=== PATIENT | female | born 1960 | race Caucasian/White ===

== ENCOUNTER → 2016-02-13 | Outpatient (CLI) | payer BC ==
[~2016-02-13] MED LIST: ALBUAER19 INH; ASPI81TA28 PO; CRAN1TAB PO; DICY20TA35 PO; FAMO20TA9 PO; GLC/500 PO; LOSA50TA54 PO; MULT-506 PO; SERT-234 PO; SIMV20TA2 PO; VNTHFA/IN INH; ZAFI1TAB10 PO
--- NOTE | 2016-02-13 17:29 | DIAGNOSTIC IMAGING REPORT ---
PELVIS 1 OR 2 VIEW ROUTINE CLINICAL HISTORY: Right hip pain status post trauma. COMPARISON STUDY: August 2008 FINDINGS: No fractures or dislocations are visualized. There is no SI joint diastases. There is no symphysis diastases. IMPRESSION: No fractures identified. Electronically signed by: Oniel Biggs M.D. 02/13/2016 5:27 PM Dictated Date/Time: 02/13/2016 5:27 PM
--- NOTE | 2016-02-13 17:32 | DIAGNOSTIC IMAGING REPORT ---
RIGHT HIP UNILATERAL 2 VIEWS CLINICAL HISTORY: Right hip pain status post trauma COMPARISON: 2008 DISCUSSION: No fractures or dislocations are visualized. No destructive lesions are identified. IMPRESSION: Unremarkable conventional radiographic evaluation of the right hip. Electronically signed by: Oniel Biggs M.D. 02/13/2016 5:30 PM Dictated Date/Time: 02/13/2016 5:29 PM
--- NOTE | 2016-02-13 17:34 | DIAGNOSTIC IMAGING REPORT ---
L-SPINE MIN 4 VIEWS ROUTINE CLINICAL HISTORY: Back pain and right hip pain status post trauma COMPARISON STUDY: No previous studies for comparison. FINDINGS: There are 5 lumbar type vertebral bodies present. No fractures or subluxations are visualized. There are minor degenerative changes present. IMPRESSION: No fractures or subluxations identified. Electronically signed by: Oniel Biggs M.D. 02/13/2016 5:32 PM Dictated Date/Time: 02/13/2016 5:32 PM
== END | disposition home or self-care (01) ==
LOC: C.RAD1850 16:53
PROVIDERS: ATTEND Nurse Practitioner Family
DX: M54.5 Low back pain (principal); W00.1XXA Fall from stairs and steps due to ice and snow, initial encounter; M79.1 Myalgia; M25.551 Pain in right hip

== ENCOUNTER 2016-11-09 07:08 | Emergency (ER) | payer BC ==
[~2016-11-09 07:08] MED LIST changes: -CRAN1TAB PO; -FAMO20TA9 PO; -VNTHFA/IN INH
[2016-11-09 07:14] VITALS: TEMP 36.8; Ht 162.6 cm
[2016-11-09] MEDS ORDERED: FAMOTIDINE 20MG/102 ML D5W IV STA (07:26)
[2016-11-09] MEDS ORDERED: SODIUM CHLORIDE 0.9% 1000ML 1,000 ML IV STA ×2 (07:26)
[2016-11-09] MEDS ORDERED: ONDANSETRON INJ 2 MG/ML 2 ML VIAL IV STA (07:26)
--- NOTE | 2016-11-09 07:38 | EMERGENCY ROOM VISIT NOTE ---
History Report prepared by Jo Ann: Nalini Mercer Under the Supervision of: Dr. Richard Day M.D. First contact with patient: 07:19 Chief Complaint: ABDOMINAL PAIN Stated Complaint: DIARRHEA,SEVERE STOMACH PAIN History of Present Illness The patient is a 55 year old female who presents to the Emergency Room with complaints of intermittent diarrhea that began one week ago, but worsened today. She currently rates her discomfort as a 7/10 in severity. The patient states that one week ago she developed diarrhea that was first brown in color but became darker in color. She states that she has a history of IBS, but her symptoms felt more severe than her normal symptoms for IBS. The patient states that around 0200 this morning she developed pain in her right lower quadrant abdomen. She states that she thought her symptoms were more severe due to her recent increased stress. The patient additionally reports nausea, but denies any vomiting. She states that she has had a recent productive cough and states that yesterday she had hot and cold flashes. The patient states that Wednesday she felt dizzy and lightheaded, noting that she fell up against her bed. She states that she has been experiencing chest pain, but attributes that to her stress as well. The patient reports a history of a hysterectomy. She denies any urinary symptoms. Source of History: patient Onset: one week ago Position: other (global) Symptom Intensity: 7/10 Timing: intermittent, worsening Associated Symptoms: + cough, + chest pain, + nausea, + abdominal pain, No vomiting, No urinary symptoms Note: Associated Symptoms: increased stress, hot and cold flashes, dizzy, lightheaded , recent fall Review of Systems See HPI for pertinent positives and negatives. A total of ten systems were reviewed and were otherwise negative. Past Medical & Surgical Medical Problems: (1) Asthma (2) Diabetes (3) ecoli UTI (4) Hyperlipidemia (5) Hypertension (6) IBS (irritable bowel syndrome) Surgical Problems: (1) History of hysterectomy Family History Diabetes mellitus Hypertension Social History Smoking Status: Never Smoker Smokeless Tobacco Use: No Alcohol Use: occasionally Drug Use: none Marital Status: Housing Status: lives alone Occupation Status: employed Current/Historical Medications Scheduled Aspirin (Aspirin Ec), 81 MG PO DAILY Cranberry (Vaccinium Macrocarp (Cranberry), 125 MG PO DAILY Dicyclomine Hcl (Bentyl), 20 MG PO BID Famotidine (Pepcid), 20 MG PO BID Losartan Potassium (Cozaar), 50 MG PO DAILY Metformin Hcl (Glucophage), 500 MG PO BID Multivitamin (Multivitamin), 1 TAB PO DAILY Sertraline (Zoloft), 100 MG PO DAILY Simvastatin (Zocor), 20 MG PO QPM Scheduled PRN Albuterol Hfa (Ventolin Hfa), 2-4 PUFFS INH Q6H PRN for Wheezing Allergies Coded Allergies: Morphine (Unverified Allergy, Unknown, ., 11/09/16) Uncoded Allergies: ANESTHESIA (Adverse Reaction, Severe, GI SYMPTOMS, 08/23/15) Physical Exam Vital Signs Date Time Temp Pulse Resp B/P (MAP) Pulse Ox O2 Delivery O2 Flow Rate FiO2 11/09/16 11:01 90 18 128/76 96 11/09/16 09:43 96 18 145/82 96 Room Air 11/09/16 08:23 100 20 166/87 96 Room Air 11/09/16 07:14 36.8 112 20 156/80 95 Room Air Physical Exam GENERAL: Awake, alert, Uncomfortable appearing, no acute distress HENT: Normocephalic, atraumatic. Dry mucous membranes. EYES: Normal conjunctiva. Sclera non-icteric. NECK: Supple. No nuchal rigidity. FROM. No JVD. RESPIRATORY: Clear to auscultation. CARDIAC: Regular rate, normal rhythm. Extremities warm and well perfused. Pulses equal. ABDOMEN: Soft, non-distended. Mild epigastric discomfort, no peritoneal signs. No rebound or guarding. No masses. RECTAL: Deferred. MUSCULOSKELETAL: Chest examination reveals no tenderness. The back is symmetrical on inspection without obvious abnormality. There is no CVA tenderness to palpation. No joint edema. LOWER EXTREMITIES: Calves are equal size bilaterally and non-tender. No edema. No discoloration. NEURO: Normal sensorium. No sensory or motor deficits noted. SKIN: No rash or jaundice noted. Medical Decision & Procedures ER Provider Diagnostic Interpretation: Radiology results as stated below per my review and radiologist interpretation: CHEST ONE VIEW PORTABLE CLINICAL HISTORY: 55 years-old Female presenting with sob. TECHNIQUE: Portable upright AP view of the chest was obtained. COMPARISON: 11/13/2008. FINDINGS: Mild prominence of the cardiac silhouette, unchanged. Mildly low lung volumes, also unchanged. Minimal bandlike opacity at the left lung base, unchanged. Lungs and pleural spaces otherwise clear. Slight dextrocurvature of the thoracic spine. Upper abdomen normal. IMPRESSION: 1. Mild cardiomegaly, unchanged. No convincing evidence of acute cardiopulmonary disease. Electronically signed by: Ellis Guajardo M.D. 11/09/2016 7:54 AM Dictated Date/Time: 11/09/2016 7:53 AM Laboratory Results 11/09/16 07:30 Red Blood Count 4.47, Mean Corpuscular Volume 90.6, Mean Corpuscular Hemoglobin 30.9, Mean Corpuscular Hemoglobin Concent 34.1, Mean Platelet Volume 10.2, Neutrophils (%) (Auto) 73.0, Lymphocytes (%) (Auto) 16.1, Monocytes (%) (Auto) 8.3, Eosinophils (%) (Auto) 2.1, Basophils (%) (Auto) 0.2, Neutrophils # (Auto) 9.90, Lymphocytes # (Auto) 2.19, Monocytes # (Auto) 1.12, Eosinophils # (Auto) 0.29, Basophils # (Auto) 0.03 11/09/16 07:30 Test 11/09/16 07:30 11/09/16 08:20 White Blood Count 13.57 K/uL (4.8-10.8) Red Blood Count 4.47 M/uL (4.2-5.4) Hemoglobin 13.8 g/dL (12.0-16.0) Hematocrit 40.5 % (37-47) Mean Corpuscular Volume 90.6 fL (80-100) Mean Corpuscular Hemoglobin 30.9 pg (25-34) Mean Corpuscular Hemoglobin Concent 34.1 g/dl (32-36) Platelet Count 215 K/uL (130-400) Mean Platelet Volume 10.2 fL (7.4-10.4) Neutrophils (%) (Auto) 73.0 % Lymphocytes (%) (Auto) 16.1 % Monocytes (%) (Auto) 8.3 % Eosinophils (%) (Auto) 2.1 % Basophils (%) (Auto) 0.2 % Neutrophils # (Auto) 9.90 K/uL (1.4-6.5) Lymphocytes # (Auto) 2.19 K/uL (1.2-3.4) Monocytes # (Auto) 1.12 K/uL (0.11-0.59) Eosinophils # (Auto) 0.29 K/uL (0-0.5) Basophils # (Auto) 0.03 K/uL (0-0.2) RDW Standard Deviation 41.8 fL (36.4-46.3) RDW Coefficient of Variation 12.7 % (11.5-14.5) Immature Granulocyte % (Auto) 0.3 % Immature Granulocyte # (Auto) 0.04 K/uL (0.00-0.02) Anion Gap 11.0 mmol/L (3-11) Estimated GFR () 85.7 Estimated GFR (Non- 74.0 BUN/Creatinine Ratio 11.8 (10-20) Calcium Level 9.6 mg/dl (8.5-10.1) Total Bilirubin 0.8 mg/dl (0.2-1) Direct Bilirubin 0.2 mg/dl (0-0.2) Aspartate Amino Transf (AST/SGOT) 18 U/L (15-37) Alanine Aminotransferase (ALT/SGPT) 27 U/L (12-78) Alkaline Phosphatase 84 U/L (45-117) Troponin I < 0.015 ng/ml (0-0.045) Total Protein 7.7 gm/dl (6.4-8.2) Albumin 3.3 gm/dl (3.4-5.0) Lipase 106 U/L (73-393) Beta-Hydroxybutyric Acid 1.19 mg/dL (0.2-2.81) Urine Color DK YELLOW Urine Appearance CLEAR (CLEAR) Urine pH 5.0 (4.5-7.5) Urine Specific [place] 1.022 (1.000-1.030) Urine Protein NEG (NEG) Urine Glucose (UA) 3+ (NEG) Urine Ketones NEG (NEG) Urine Occult Blood NEG (NEG) Urine Nitrite NEG (NEG) Urine Bilirubin NEG (NEG) Urine Urobilinogen NEG (NEG) Urine Leukocyte Esterase NEG (NEG) Laboratory results reviewed by me Medications Administered Medications (Trade) Dose Ordered Sig/Christian Route Start Time Stop Time Status Last Admin Dose Admin Sodium Chloride 1,000 ml @ 999 mls/hr Q1H1M STAT IV 11/09/16 07:26 10/2/17 08:26 DC 11/09/16 07:26 999 MLS/HR Ondansetron HCl (Zofran Inj) 4 mg NOW STAT IV 11/09/16 07:26 11/09/16 07:29 DC 11/09/16 07:26 4 MG Famotidine (Pepcid 20mg/100 ml) 20 mg ONE STAT IV 11/09/16 07:26 11/09/16 07:29 DC 11/09/16 07:26 20 MG Sodium Chloride 1,000 ml @ 999 mls/hr Q1H1M STAT IV 11/09/16 07:26 11/09/16 08:26 DC 11/09/16 07:26 999 MLS/HR ECG Indication: chest pain Rate (beats per minute): 102 Rhythm: sinus tachycardia Findings: no acute ischemic change, other (normal axis, LVH) ED Course 0721: The patient was evaluated in room A10. A complete history and physical exam was performed. 0726: Ordered Sodium Chloride 1000 ml @ 999 mls/hr IV, Famotidine 20 mg IV, Zofran Inj 4 mg IV, Sodium Chloride 1000 ml @ 999 mls/hr IV. 0824: I reevaluated the patient and she is feeling better. 1038: I reevaluated the patient and she is feeling much better. I discussed the exam findings with her and I discussed the treatment plan. She verbalized complete understanding and agreement. She is ready to go home. Medical Decision The patient's presentation and history were concerning for IBS, gastritis, gastroenteritis, obstruction, diverticulitis, biliary etiology, ACS, pneumonia, bronchitis. I reviewed the patient's past medical history, medications, and the nursing notes as described above. Medication Reconciliation: I attest that I have personally reviewed the patient' s current medication list Patient was found to have a slightly elevated blood pressure due to circumstances. I do not believe that the patient requires hypertension monitoring. The patient is a 55-year-old woman with a past medical history of IBS who presents emergency Department with worsening diarrhea and abdominal pain history of present illness. Arrival the patient is in no acute distress, afebrile, tachycardia to 110s but otherwise stable vital signs. Mild epigastric discomfort but no exquisite tenderness or peritoneal signs. WBC 13, nonspecific. Glucose 300s and BHB 1, consistent with with the patient' s medically dry appearance. Patient reassessed after IVF, zofran, pepcid and feeling improved. Sx most likely gastroenteritis in the setting of the patient' s chronic IBS. Findings and plan for follow-up reviewed with patient. Patient agreeable and d/c'd per discharge instructions. Impression Primary Impression: Gastroenteritis Scribe Attestation The scribe's documentation has been prepared under my direction and personally reviewed by me in its entirety. I confirm that the note above accurately reflects all work, treatment, procedures, and medical decision making performed by me. Departure Information Dispostion Home / Self-Care Prescriptions Famotidine (PEPCID) 20 Mg Tab 20 MG PO BID for 14 Days, #28 TAB Prov: Richard Day M.D. 11/09/16 Referrals Luz Evans (PCP) Forms Call Back Authorization, HOME CARE DOCUMENTATION FORM, IMPORTANT VISIT INFORMATION Patient Instructions ED Food Poison Or Gastroenteritis, My [facility] Additional Instructions Please follow up with your primary care physician in the next 1-3 days for re- evaluation. You likely have a viral gastroenteritis. Otherwise, your exam and lab results did not show signs of an emergent condition at this time. Pepcid as directed. Drink plenty of fluids to ensure hydration. Return to the emergency department for worsening symptoms as described in the accompanying instructions.
[2016-11-09 07:45] LABS: BASO % 0.2 %; BASO ABS # 0.03 K/uL (0-0.2); COMPLETE YES; EOS % 2.1 %; HEMATOCRIT 40.5 % (37-47); IG% 0.3 %; LYMPH % 16.1 %; LYMPH ABS # 2.19 K/uL (1.2-3.4); MEAN CELL VOLUME 90.6 fL (80-100); MEAN CORPUSCULAR HEMOGLOBIN 30.9 pg (25-34); MEAN CORPUSCULAR HGB CONC 34.1 g/dl (32-36); MEAN PLATELET VOLUME 10.2 fL (7.4-10.4); MONO % 8.3 %; PLATELET COUNT 215 K/uL (130-400); RED BLOOD COUNT 4.47 M/uL (4.2-5.4); WHITE BLOOD COUNT 13.57 K/uL (4.8-10.8)
--- NOTE | 2016-11-09 07:56 | DIAGNOSTIC IMAGING REPORT ---
CHEST ONE VIEW PORTABLE CLINICAL HISTORY: 55 years-old Female presenting with sob. TECHNIQUE: Portable upright AP view of the chest was obtained. COMPARISON: 11/13/2008. FINDINGS: Mild prominence of the cardiac silhouette, unchanged. Mildly low lung volumes, also unchanged. Minimal bandlike opacity at the left lung base, unchanged. Lungs and pleural spaces otherwise clear. Slight dextrocurvature of the thoracic spine. Upper abdomen normal. IMPRESSION: 1. Mild cardiomegaly, unchanged. No convincing evidence of acute cardiopulmonary disease. Electronically signed by: Ellis Guajardo M.D. 11/09/2016 7:54 AM Dictated Date/Time: 11/09/2016 7:53 AM
[2016-11-09 08:02] LABS: ALT/SGPT 27 U/L (12-78); BLOOD UREA NITROGEN 10 mg/dl (7-18); BUN/CREATININE RATIO 11.8 (10-20); CALCIUM 9.6 mg/dl (8.5-10.1); CARBON DIOXIDE 23 mmol/L (21-32); CHLORIDE 105 mmol/L (98-107); CREATININE 0.88 mg/dl (0.60-1.20); GLUCOSE 313 mg/dl (70-99); POTASSIUM 3.7 mmol/L (3.5-5.1); SODIUM 139 mmol/L (136-145)
[2016-11-09] MEDS ORDERED: CRAN1TAB PO (08:05)
[2016-11-09] MEDS ORDERED: VNTHFA/IN INH (08:05)
[2016-11-09 08:07] LABS: ALKALINE PHOSPHATASE 84 U/L (45-117); AST/SGOT 18 U/L (15-37)
[2016-11-09 08:14] LABS: BETA-HYDROXYBUTYRATE 1.19 mg/dL (0.2-2.81)
[2016-11-09 08:45] LABS: URINE APPEARANCE CLEAR (CLEAR); URINE BILIRUBIN NEG (NEG); URINE COLOR DK YELLOW; URINE NITRITE NEG (NEG); URINE SPECIFIC GRAVITY 1.022 (1.000-1.030); UROBILINOGEN NEG (NEG)
[2016-11-09 08:47] LABS: MANUAL MICROSCOPIC REQUIRED? NO; REVIEW REQ? NO; ZZUR CULT IF INDIC CLEAN CATCH NO
[2016-11-09] MEDS ORDERED: FAMO20TA9 PO (10:52)
[2016-11-09 11:01] VITALS: BP 128/76; PULSE 90; O2SAT 96
== END 2016-11-09 11:02 | disposition home or self-care (01) ==
LOC: C.EDB 07:09 → C.EDA 11:02
DX: K52.9 Noninfective gastroenteritis and colitis, unspecified (principal); K58.9 Irritable bowel syndrome, unspecified; Z90.710 Acquired absence of both cervix and uterus; J45.909 Unspecified asthma, uncomplicated; E11.9 Type 2 diabetes mellitus without complications; E78.5 Hyperlipidemia, unspecified; I10 Essential (primary) hypertension; Z83.3 Family history of diabetes mellitus; Z82.49 Family history of ischemic heart disease and other diseases of the circulatory system; Z79.82 Long term (current) use of aspirin; Z79.899 Other long term (current) drug therapy

== ENCOUNTER 2016-11-14 09:06 | Inpatient (IN) | payer BC ==
[~2016-11-14] VITALS: Ht 162.6 cm; Wt 127.1 kg
[~2016-11-14 09:06] MED LIST changes: -ALBUAER19 INH; +CRAN1TAB PO; +FAMO20TA9 PO; +VNTHFA/IN INH; -ZAFI1TAB10 PO
[2016-11-14] MEDS ORDERED: ONDANSETRON INJ 2 MG/ML 2 ML VIAL IV STA (09:35)
[2016-11-14] MEDS ORDERED: SODIUM CHLORIDE 0.9% 1000ML 1,000 ML IV STA ×2 (09:35→11:22)
[2016-11-14] MEDS ORDERED: KETOROLAC TROMETHAMINE 30 MG/ML VIAL IV STA (09:35)
[2016-11-14] MEDS ORDERED: SODIUM CHLORIDE 0.9% 1000ML 1,000 ML IV ONE (09:35)
[2016-11-14 09:50] LABS: BASO % 0.3 %; BASO ABS # 0.04 K/uL (0-0.2); COMPLETE YES; EOS % 2.2 %; HEMATOCRIT 40.1 % (37-47); IG% 0.8 %; MEAN CELL VOLUME 88.7 fL (80-100); MEAN CORPUSCULAR HEMOGLOBIN 30.5 pg (25-34); MEAN CORPUSCULAR HGB CONC 34.4 g/dl (32-36); MEAN PLATELET VOLUME 10.1 fL (7.4-10.4); MONO % 8.5 %; NEUT % 67.2 %; PLATELET COUNT 280 K/uL (130-400); RED BLOOD COUNT 4.52 M/uL (4.2-5.4)
--- NOTE | 2016-11-14 09:52 | EMERGENCY ROOM VISIT NOTE ---
History Report prepared by Jo Ann: Jigar Hendrix Under the Supervision of: Dr. Angelito Mcbride M.D. First contact with patient: 09:23 Chief Complaint: VOMITING Stated Complaint: ILLNESS Nursing Triage Summary: pt arrives via EMS reports seen here 11/09 for NVD DC with gastroenteritis FU with PCP Wed and Fri. cont to have NVD and feels no better History of Present Illness The patient is a 55 year old female who presents to the Emergency Room via EMS with complaints of diarrhea that began 1 week ago. A couple of days ago, she began to have nausea and vomiting as well. Today, she called her insurance nurse who recommended that the patient go to the ER for possible dehydration. The patient states that she is also lightheaded and has intermittent chest pressure with heart palpitations. She is on a medication for hypertension maintenance secondary to her diabetes. She notes that she has a headache and a cough with sputum. She is having abdominal soreness. She saw her PCP twice this week who thought it might be Giardia. They checked her stool yesterday, so she does not have her results yet. Her symptoms worsen with any eating. She is able to take her medications, but has diarrhea almost immediately after. She felt mildly better after receiving fluids yesterday. She denies any recent antibiotics or travel. She denies any neck pain, hematochezia, or melena. She denies any well water exposure or recent camping trips. Source of History: patient Onset: 1 week ago Position: other (GI) Symptom Intensity: Multiple episodes Quality: other (Diarrhea) Timing: worsening Modifying Factors (Worsening): eating Modifying Factors (Relieving): other (IV fluids) Associated Symptoms: + headache, + cough, + nausea, + vomiting, + abdominal pain (sore), No melena, No hematochezia Note: She is lightheaded. Review of Systems See HPI for pertinent positives & negatives. A total of 10 systems reviewed and were otherwise negative. Past Medical & Surgical Medical Problems: (1) Asthma (2) Diabetes (3) Diarrhea, dehydration, chest pressure (4) ecoli UTI (5) Hyperlipidemia (6) Hypertension (7) IBS (irritable bowel syndrome) Surgical Problems: (1) History of hysterectomy Old medical records were reviewed. Nurse's notes were reviewed and I agree with. Family History Diabetes mellitus Hypertension Social History Smoking Status: Never Smoker Smokeless Tobacco Use: No Alcohol Use: occasionally Drug Use: none Marital Status: Housing Status: lives alone Occupation Status: employed Current/Historical Medications Scheduled Aspirin (Aspirin Ec), 81 MG PO DAILY Cranberry (Vaccinium Macrocarp (Cranberry), 125 MG PO DAILY Dicyclomine Hcl (Bentyl), 20 MG PO BID Famotidine (Pepcid), 20 MG PO BID Losartan Potassium (Cozaar), 50 MG PO DAILY Metformin Hcl (Glucophage), 500 MG PO BID Multivitamin (Multivitamin), 1 TAB PO DAILY Sertraline (Zoloft), 100 MG PO DAILY Simvastatin (Zocor), 20 MG PO QPM Scheduled PRN Albuterol Hfa (Ventolin Hfa), 2-4 PUFFS INH Q6H PRN for Wheezing Allergies Coded Allergies: Morphine (Unverified Allergy, Unknown, ., 11/14/16) Uncoded Allergies: ANESTHESIA (Adverse Reaction, Severe, GI SYMPTOMS, 08/23/15) Physical Exam Vital Signs Date Time Temp Pulse Resp B/P (MAP) Pulse Ox O2 Delivery O2 Flow Rate FiO2 11/14/16 10:44 78 20 160/84 96 Room Air 11/14/16 09:17 91 11/14/16 09:13 36.6 100 20 182/103 96 Room Air Physical Exam General: Mildly-ill appearing, non-toxic, middle aged female in no acute distress. HEENT: Normal cephalic atraumatic. Pupils are equal round and reactive to light. Extraocular movements are intact. Oropharynx is pink with moist mucous membranes. No swelling of the mouth lips or tongue. Neck: Supple with a midline trachea. No meningeal signs or stiffness, no JVD or bruits. No Stridor. Chest: Clear to auscultation bilaterally. No wheezes or rhonchi. No increased work of breathing. Heart: regular rate and rhythm. Abdomen: Soft, but minimally diffusely tender, no peritoneal signs or masses, nondistended without rebound guarding or rigidity. Extremities: No cyanosis clubbing or edema. No calf tenderness or assymetry Spine/Back. Non tender to palpation. No CVA tenderness Skin: Good turgor without rashes. Neurologic exam: Cranial nerves two through 12 are intact. Motor and sensation are intact and symmetrical throughout. Medical Decision & Procedures ER Provider Diagnostic Interpretation: Radiology results as stated below per my review and radiologist interpretation: CHEST ONE VIEW PORTABLE HISTORY: 55 years-old Female CHEST PAIN acute atypical chest pain. COMPARISON: Chest radiograph 11/09/2016 TECHNIQUE: Portable upright AP view of the chest FINDINGS: Cardiac silhouette is mildly enlarged. Mild left basilar atelectasis is unchanged. There is pulmonary vascular congestion without pneumothorax, pleural effusion or focal airspace consolidation. Patient obesity noted. The bones are grossly intact. IMPRESSION: No acute cardiopulmonary process. The above report was generated using voice recognition software. It may contain grammatical, syntax or spelling errors. Electronically signed by: Ángel Mir M.D. 11/14/2016 10:00 AM Dictated Date/Time: 11/14/2016 9:59 AM ABD/PELVIS IV CONTRAST ONLY HISTORY: 55 years-old Female eval for colitis acute generalized abdominal pain with clinical concern for possible colitis. COMPARISON: CT abdomen and pelvis 01/10/2015 TECHNIQUE: Multiple axial CT images of the abdomen and pelvis were obtained following the intravenous administration of 94 mL Optiray 320. A dose lowering technique was used consistent with the principals of RUDDY. FINDINGS: Groundglass opacities of the lung bases suggest atelectasis. There is no pneumoperitoneum identified. The imaged inferior cardiac chambers are mildly enlarged. There is fatty infiltration of the liver. The gallbladder, spleen, pancreas and adrenal glands are within normal limits. Kidneys, ureters and urinary bladder are unremarkable. No renal calculi or hydronephrosis. Prior hysterectomy. The abdominal aorta is normal in both course and caliber with mild mixed plaquing. No bulky retroperitoneal adenopathy. There is no focal small bowel abnormality or small bowel obstruction identified. Wall thickening with mucosal hyperemia and mild surrounding inflammatory stranding extends from the cecum to the rectum compatible with tena colitis. No evidence of acute appendicitis. Fat filled infraumbilical midline anterior abdominal wall hernia is noted anterior to the urinary bladder, diastases 3.6 cm. Note is made of diastases recti. Bones appear intact. Severe facet arthropathy at L5-S1. IMPRESSION: 1. Findings compatible with acute uncomplicated pancolitis, likely infectious or inflammatory in nature. 2. Fatty infiltration of the liver. 3. Prior hysterectomy. The above report was generated using voice recognition software. It may contain grammatical, syntax or spelling errors. Electronically signed by: Ángel Mir M.D. 11/14/2016 12:10 PM Dictated Date/Time: 11/14/2016 12:04 PM Laboratory Results 11/14/16 09:15 Red Blood Count 4.52, Mean Corpuscular Volume 88.7, Mean Corpuscular Hemoglobin 30.5, Mean Corpuscular Hemoglobin Concent 34.4, Mean Platelet Volume 10.1, Neutrophils (%) (Auto) 67.2, Lymphocytes (%) (Auto) 21.0, Monocytes (%) (Auto) 8.5, Eosinophils (%) (Auto) 2.2, Basophils (%) (Auto) 0.3, Neutrophils # (Auto) 8.00, Lymphocytes # (Auto) 2.50, Monocytes # (Auto) 1.01, Eosinophils # (Auto) 0.26, Basophils # (Auto) 0.04 11/14/16 09:15 Test 11/14/16 09:15 11/14/16 09:35 11/14/16 09:46 11/14/16 11:34 White Blood Count 11.90 K/uL (4.8-10.8) Red Blood Count 4.52 M/uL (4.2-5.4) Hemoglobin 13.8 g/dL (12.0-16.0) Hematocrit 40.1 % (37-47) Mean Corpuscular Volume 88.7 fL (80-100) Mean Corpuscular Hemoglobin 30.5 pg (25-34) Mean Corpuscular Hemoglobin Concent 34.4 g/dl (32-36) Platelet Count 280 K/uL (130-400) Mean Platelet Volume 10.1 fL (7.4-10.4) Neutrophils (%) (Auto) 67.2 % Lymphocytes (%) (Auto) 21.0 % Monocytes (%) (Auto) 8.5 % Eosinophils (%) (Auto) 2.2 % Basophils (%) (Auto) 0.3 % Neutrophils # (Auto) 8.00 K/uL (1.4-6.5) Lymphocytes # (Auto) 2.50 K/uL (1.2-3.4) Monocytes # (Auto) 1.01 K/uL (0.11-0.59) Eosinophils # (Auto) 0.26 K/uL (0-0.5) Basophils # (Auto) 0.04 K/uL (0-0.2) RDW Standard Deviation 39.3 fL (36.4-46.3) RDW Coefficient of Variation 12.4 % (11.5-14.5) Immature Granulocyte % (Auto) 0.8 % Immature Granulocyte # (Auto) 0.09 K/uL (0.00-0.02) Anion Gap 7.0 mmol/L (3-11) Est Creatinine Clear Calc Drug Dose 116.8 ml/min Estimated GFR () 115.3 Estimated GFR (Non- 99.4 BUN/Creatinine Ratio 13.7 (10-20) Calcium Level 8.9 mg/dl (8.5-10.1) Total Bilirubin 1.0 mg/dl (0.2-1) Direct Bilirubin 0.2 mg/dl (0-0.2) Aspartate Amino Transf (AST/SGOT) 42 U/L (15-37) Alanine Aminotransferase (ALT/SGPT) 50 U/L (12-78) Alkaline Phosphatase 77 U/L (45-117) Total Creatine Kinase 64 U/L (26-192) Creatine Kinase MB < 0.5 ng/ml (0.5-3.6) Total Protein 7.7 gm/dl (6.4-8.2) Albumin 3.4 gm/dl (3.4-5.0) Lipase 108 U/L (73-393) Thyroid Stimulating Hormone (TSH) 1.270 uIu/ml (0.300-4.500) Creatine Kinase MB Ratio (0-3.0) Bedside Troponin I < 0.030 ng/ml (0-0.045) Urine Color YELLOW Urine Appearance CLEAR (CLEAR) Urine pH 6.5 (4.5-7.5) Urine Specific Durand 1.011 (1.000-1.030) Urine Protein NEG (NEG) Urine Glucose (UA) NEG (NEG) Urine Ketones 1+ (NEG) Urine Occult Blood NEG (NEG) Urine Nitrite NEG (NEG) Urine Bilirubin NEG (NEG) Urine Urobilinogen NEG (NEG) Urine Leukocyte Esterase NEG (NEG) Test 11/14/16 12:35 Bedside Lactic Acid Venous 0.72 mmol/L (0.90-1.70) Laboratory studies as stated above per my review. Medications Administered Medications (Trade) Dose Ordered Sig/Christian Route Start Time Stop Time Status Last Admin Dose Admin Sodium Chloride 1,000 ml @ 999 mls/hr Q1H1M STAT IV 11/14/16 09:35 11/14/16 10:35 DC 11/14/16 09:35 999 MLS/HR Sodium Chloride 1,000 ml @ 150 mls/hr Q6H40M ONCE IV 11/14/16 09:35 11/14/16 16:14 11/14/16 09:35 150 MLS/HR Ketorolac Tromethamine (Toradol Inj) 30 mg NOW STAT IV 11/14/16 09:35 11/14/16 09:38 DC 11/14/16 09:46 30 MG Ondansetron HCl (Zofran Inj) 4 mg NOW STAT IV 11/14/16 09:35 11/14/16 09:38 DC 11/14/16 09:45 4 MG Sodium Chloride 1,000 ml @ 999 mls/hr Q1H1M STAT IV 11/14/16 11:22 11/14/16 12:22 DC 11/14/16 11:33 999 MLS/HR ECG Indication: vomiting Rate (beats per minute): 90 Rhythm: normal sinus Findings: other (Non-specific T-wave abnormalities, LVH) Comparison ECG Date: 09 Nov 2016 Change: QT interval has increased. ED Course 922: Past medical records reviewed. The patient was evaluated in room A10, and a complete history and physical examination were performed. 0935: Ordered Zofran Inj 4 mg IV, Toradol Inj 30 mg IV, Sodium Chloride 1000 ml @ 150 mls/hr IV, Sodium Chloride 1000 ml @ 999 mls/hr IV 1122: Ordered Sodium Chloride 1000 ml @ 999 mls/hr IV 1224: Upon reevaluation, the patient is resting. I discussed the results and treatment plan with the patient. She verbalized agreement of the treatment plan. The patient will be evaluated by Dr. Gareth RAE, for further management. Medical Decision Differentials include, but are not limited to; dehydration, C-Diff, colitis, sepsis, and electrolyte or metabolic abnormality. This patient comes in as described above. She was placed in room A 10. She presents by ambulance after having continuing diarrhea, abdominal cramping and additionally had a near syncopal episode today she felt very weak. She also started having nausea and vomiting. No definite chest pain. She's had diarrhea for one to one and half weeks. She was seen here once and by her primary doctor twice including yesterday when she went to the medical treatment unit to receive IV fluids she had stool studies done which are pending they did not check for C. difficile. They have checked for Giardia and stool culture among other stool studies pending. IV access established was hydrated with a couple liters of IV normal saline while she was in the emergency department. She has no significant electrolyte or metabolic abnormalities. Her white count is mildly elevated however it's down from the last one. Abdomen is not significantly tender but she is mildly diffusely. I did do a CAT scan she has a diffuse tena colitis. Urinalysis does not suggest UTI with a backup culture pending. Most likely her colitis is from an infectious type source. I do not think she has ischemic colitis. Her lactic acid is normal. She has nothing to suggest acute coronary syndrome or arrhythmia. Her EKG is nonischemic appearing. I do think she needs to be observed for further treatment and evaluation. I did order C. difficile studies and these are pending. I did discuss the case with the [facility] hospitalist and she will be observed/admitted for these measures Medication Reconcilliation Current Medication List: was personally reviewed by me (Jigar Hendrix) Blood Pressure Screening Patient's blood pressure: Elevated blood pressure Blood pressure disposition: Elevated BP felt to be situational Consults Time Called: 1220 Consulting Physician: Dr. Servin - [facility] [place] Returned Call: 1224 Discussed the patient's case. The patient will be evaluated for further management. Impression Primary Impression: Pancolitis Additional Impression: Dehydration Scribe Attestation The scribe's documentation has been prepared under my direction and personally reviewed by me in its entirety. I confirm that the note above accurately reflects all work, treatment, procedures, and medical decision making performed by me. Departure Information Dispostion Being Evaluated By Hospitalist Referrals Luz Evans (PCP) Patient Instructions My [facility] Problem Qualifiers
[2016-11-14 09:59] LABS: BLOOD UREA NITROGEN 9 mg/dl (7-18); BUN/CREATININE RATIO 13.7 (10-20); CALCIUM 8.9 mg/dl (8.5-10.1); CARBON DIOXIDE 29 mmol/L (21-32); CHLORIDE 106 mmol/L (98-107); CREATININE 0.66 mg/dl (0.60-1.20); GLUCOSE 200 mg/dl (70-99); POTASSIUM 3.4 mmol/L (3.5-5.1); SODIUM 142 mmol/L (136-145)
--- NOTE | 2016-11-14 10:02 | DIAGNOSTIC IMAGING REPORT ---
CHEST ONE VIEW PORTABLE HISTORY: 55 years-old Female CHEST PAIN acute atypical chest pain. COMPARISON: Chest radiograph 11/09/2016 TECHNIQUE: Portable upright AP view of the chest FINDINGS: Cardiac silhouette is mildly enlarged. Mild left basilar atelectasis is unchanged. There is pulmonary vascular congestion without pneumothorax, pleural effusion or focal airspace consolidation. Patient obesity noted. The bones are grossly intact. IMPRESSION: No acute cardiopulmonary process. The above report was generated using voice recognition software. It may contain grammatical, syntax or spelling errors. Electronically signed by: Ángel Mir M.D. 11/14/2016 10:00 AM Dictated Date/Time: 11/14/2016 9:59 AM
[2016-11-14 10:11] LABS: ALKALINE PHOSPHATASE 77 U/L (45-117); ALT/SGPT 50 U/L (12-78); AST/SGOT 42 U/L (15-37)
[2016-11-14] MEDS ORDERED: OPTIRAY 320 IV PRN (11:30)
[2016-11-14 12:09] LABS: URINE APPEARANCE CLEAR (CLEAR); URINE BILIRUBIN NEG (NEG); URINE COLOR YELLOW; URINE NITRITE NEG (NEG); URINE PH 6.5 (4.5-7.5); URINE SPECIFIC GRAVITY 1.011 (1.000-1.030); UROBILINOGEN NEG (NEG)
--- NOTE | 2016-11-14 12:11 | DIAGNOSTIC IMAGING REPORT ---
ABD/PELVIS IV CONTRAST ONLY HISTORY: 55 years-old Female eval for colitis acute generalized abdominal pain with clinical concern for possible colitis. COMPARISON: CT abdomen and pelvis 01/10/2015 TECHNIQUE: Multiple axial CT images of the abdomen and pelvis were obtained following the intravenous administration of 94 mL Optiray 320. A dose lowering technique was used consistent with the principals of RUDDY. FINDINGS: Groundglass opacities of the lung bases suggest atelectasis. There is no pneumoperitoneum identified. The imaged inferior cardiac chambers are mildly enlarged. There is fatty infiltration of the liver. The gallbladder, spleen, pancreas and adrenal glands are within normal limits. Kidneys, ureters and urinary bladder are unremarkable. No renal calculi or hydronephrosis. Prior hysterectomy. The abdominal aorta is normal in both course and caliber with mild mixed plaquing. No bulky retroperitoneal adenopathy. There is no focal small bowel abnormality or small bowel obstruction identified. Wall thickening with mucosal hyperemia and mild surrounding inflammatory stranding extends from the cecum to the rectum compatible with tena colitis. No evidence of acute appendicitis. Fat filled infraumbilical midline anterior abdominal wall hernia is noted anterior to the urinary bladder, diastases 3.6 cm. Note is made of diastases recti. Bones appear intact. Severe facet arthropathy at L5-S1. IMPRESSION: 1. Findings compatible with acute uncomplicated pancolitis, likely infectious or inflammatory in nature. 2. Fatty infiltration of the liver. 3. Prior hysterectomy. The above report was generated using voice recognition software. It may contain grammatical, syntax or spelling errors. Electronically signed by: Ángel Mir M.D. 11/14/2016 12:10 PM Dictated Date/Time: 11/14/2016 12:04 PM
[2016-11-14 12:14] LABS: MANUAL MICROSCOPIC REQUIRED? NO; REVIEW REQ? NO
--- NOTE | 2016-11-14 12:48 | History and Physical ---
History & Physical Date & Time of Service: Nov 14, 2016 at 12:44 Chief Complaint: Illness Primary Care Physician: Luz Evans History of Present Illness Source: patient This is a 55 y oF with PMhx of asthma, HTN, HLD, diabetes type 2, irritable bowel disease, who presents after 10 days of ongoing diarrhea nausea and vomiting. The patient reports that this morning, at 0600 she called a friend reporting she was in distress with weakness, lightheadedness and dizziness which she thought was from dehydration. This friend is present with her at bedside. Pt attempted to walk back to bed, however cannot recall how she walked from her living room to her bed, and feels that she may have blacked out. She is not sore, denies any trauma, lesions or abrasions that she is aware of from possible fall. She has been to see Dr. Solis, and Dr. Marin who are with Luz Evans in her PCPs office twice within the past week. She was seen on where stool studies were obtained including Giardia. It is unknown if C. difficile was obtained at that time. She reports drinking Gatorade and water the last few days but has been unable to keep it down. She has vomited twice today, but denies any coffee-ground emesis or bright red blood streaking. Her abdominal pain waxes and wanes, and it seems to be worse in the epigastric and left upper quadrant region. She reports severe cramping prior to a bowel movement, and improvement in pain after bowel movement. She reports her stools have been loose, foul-smelling, and mucous-like. She denies any fevers, sweats, chills. She also reports of chest pressure along with palpitations which has been on and off over the past few days as well. She denies anxious personality, and reports that anxiety does not seem to be playing a part. She has an albuterol rescue inhaler but has not used it due to palpitations and fear of making them worse. Patient denies any chest pain. She admits to right frontal headache which has been severe, times last day and has taken ibuprofen for the pain which is only slightly relieved it. Here in the ER the patient stool was tested for C. difficile, currently in process. Blood pressure elevated initially at 182/103 and has reduced down to 160/84. She was also initially tachycardic but now has a regular pulse at 78. She is afebrile, no WBC= 11.9, slight left shift. Potassium equals 3.4. CT of the abdomen and pelvis was reviewed and shows gastritis, without other acute findings. Chest x-ray was completed and without any acute abnormalities. Past Medical/Surgical History Medical Problems: (1) Asthma Status: Chronic (2) Diabetes Status: Chronic (3) Hyperlipidemia Status: Chronic (4) Hypertension Status: Chronic (5) IBS (irritable bowel syndrome) Status: Chronic Surgical Problems: (1) History of hysterectomy Status: Resolved Family History Diabetes mellitus Hypertension Social History Smoking Status: Never Smoker Smokeless Tobacco Use: No Drug Use: none Marital Status: single, Housing status: lives alone Occupational Status: employed Immunizations History of Influenza Vaccine: No History of Tetanus Vaccine?: Unknown History of Pneumococcal: YES, 2 YRS AGO. History of Hepatitis B Vaccine: No Multi-Drug Resistant Organisms History of MDRO: No Allergies Coded Allergies: Morphine (Unverified Allergy, Unknown, ., 11/14/16) Uncoded Allergies: ANESTHESIA (Adverse Reaction, Severe, GI SYMPTOMS, 08/23/15) Home Medications Scheduled Aspirin (Aspirin Ec), 81 MG PO DAILY Cranberry (Vaccinium Macrocarp (Cranberry), 125 MG PO DAILY Dicyclomine Hcl (Bentyl), 20 MG PO BID Famotidine (Pepcid), 20 MG PO BID Losartan Potassium (Cozaar), 50 MG PO DAILY Metformin Hcl (Glucophage), 500 MG PO BID Multivitamin (Multivitamin), 1 TAB PO DAILY Sertraline (Zoloft), 100 MG PO DAILY Simvastatin (Zocor), 20 MG PO QPM Scheduled PRN Albuterol Hfa (Ventolin Hfa), 2-4 PUFFS INH Q6H PRN for Wheezing Review of Systems Constitutional: No fever, sweats or chills Eyes: No diplopia, no worsening or blurred vision ENT: normal hearing, no trouble swallowing Respiratory: No cough, sputum, dyspnea at rest or on exertion Cardiovascular: + Chest pressure, palpitations, no pain. Abdomen: + pain, nausea, vomiting, and diarrhea. Musculoskeletal: No joint pain, calf pain, swelling Neurologic: Uses a walker for ambulation, right hip flexor weakness. Psychiatric: No anxiety or depression Skin: No rash or itch Physical Exam Vital Signs Date Time Temp Pulse Resp B/P (MAP) Pulse Ox O2 Delivery O2 Flow Rate FiO2 11/14/16 10:44 78 20 160/84 96 Room Air 11/14/16 09:17 91 11/14/16 09:13 36.6 100 20 182/103 96 Room Air General: awake, alert, no apparent distress, morbidly obese Head: Normocephalic, atraumatic ENT: PERRL, EOMI, no pharyngeal exudate, mucous membranes moist Chest: Clear to auscultation, on room air, no adventitious breath sounds Cardiac: Regular rate and rhythm, no murmur, no JVD, normal peripheral pulses, good capillary refill Abdominal: Hypoactive bowel sounds, soft, tender to palpation in epigastric and left upper quadrant with deep palpation, + pain with percussion in epigastric and left upper quadrant, no rebound, guarding or tenderness Extremities: Normal inspection, no peripheral edema or erythema, calfs nontender to palpation. No apparent lesions or abrasions. Psych: Normal mood and affect Neuro: AAO x 3, strength intact bilaterally and related 5/5 in upper extremities , right hip flexor rated 3/5 in strength and left is 5/5, no motor deficits, speech is clear, no peripheral sensory deficits. All other areas of strength tested and are negative. Diagnostics Laboratory Results Results Past 24 Hours Test 11/14/16 09:15 11/14/16 09:35 11/14/16 09:46 11/14/16 11:34 Range/Units White Blood Count 11.90 4.8-10.8 K/uL Red Blood Count 4.52 4.2-5.4 M/uL Hemoglobin 13.8 12.0-16.0 g/dL Hematocrit 40.1 37-47 % Mean Corpuscular Volume 88.7 80-100 fL Mean Corpuscular Hemoglobin 30.5 25-34 pg Mean Corpuscular Hemoglobin Concent 34.4 32-36 g/dl Platelet Count 280 130-400 K/uL Mean Platelet Volume 10.1 7.4-10.4 fL Neutrophils (%) (Auto) 67.2 % Lymphocytes (%) (Auto) 21.0 % Monocytes (%) (Auto) 8.5 % Eosinophils (%) (Auto) 2.2 % Basophils (%) (Auto) 0.3 % Neutrophils # (Auto) 8.00 1.4-6.5 K/uL Lymphocytes # (Auto) 2.50 1.2-3.4 K/uL Monocytes # (Auto) 1.01 0.11-0.59 K/uL Eosinophils # (Auto) 0.26 0-0.5 K/uL Basophils # (Auto) 0.04 0-0.2 K/uL RDW Standard Deviation 39.3 36.4-46.3 fL RDW Coefficient of Variation 12.4 11.5-14.5 % Immature Granulocyte % (Auto) 0.8 % Immature Granulocyte # (Auto) 0.09 0.00-0.02 K/uL Sodium Level 142 136-145 mmol/L Potassium Level 3.4 3.5-5.1 mmol/L Chloride Level 106 98-107 mmol/L Carbon Dioxide Level 29 21-32 mmol/L Anion Gap 7.0 3-11 mmol/L Blood Urea Nitrogen 9 7-18 mg/dl Creatinine 0.66 0.60-1.20 mg/dl Est Creatinine Clear Calc Drug Dose 116.8 ml/min Estimated GFR () 115.3 Estimated GFR (Non- 99.4 BUN/Creatinine Ratio 13.7 10-20 Random Glucose 200 70-99 mg/dl Calcium Level 8.9 8.5-10.1 mg/dl Total Bilirubin 1.0 0.2-1 mg/dl Direct Bilirubin 0.2 0-0.2 mg/dl Aspartate Amino Transf (AST/SGOT) 42 15-37 U/L Alanine Aminotransferase (ALT/SGPT) 50 12-78 U/L Alkaline Phosphatase 77 45-117 U/L Total Creatine Kinase 64 26-192 U/L Creatine Kinase MB < 0.5 0.5-3.6 ng/ml Creatine Kinase MB Ratio 0-3.0 Total Protein 7.7 6.4-8.2 gm/dl Albumin 3.4 3.4-5.0 gm/dl Lipase 108 73-393 U/L Thyroid Stimulating Hormone (TSH) 1.270 0.300-4.500 uIu/ml Bedside Troponin I < 0.030 0-0.045 ng/ml Urine Color YELLOW Urine Appearance CLEAR CLEAR Urine pH 6.5 4.5-7.5 Urine Specific [place] 1.011 1.000-1.030 Urine Protein NEG NEG Urine Glucose (UA) NEG NEG Urine Ketones 1+ NEG Urine Occult Blood NEG NEG Urine Nitrite NEG NEG Urine Bilirubin NEG NEG Urine Urobilinogen NEG NEG Urine Leukocyte Esterase NEG NEG Microbiology Results 11/14/16 Urine Culture, Received Pending Diagnostic Radiology ABD/PELVIS IV CONTRAST ONLY HISTORY: 55 years-old Female eval for colitis acute generalized abdominal pain with clinical concern for possible colitis. COMPARISON: CT abdomen and pelvis 01/10/2015 TECHNIQUE: Multiple axial CT images of the abdomen and pelvis were obtained following the intravenous administration of 94 mL Optiray 320. A dose lowering technique was used consistent with the principals of RUDDY. FINDINGS: Groundglass opacities of the lung bases suggest atelectasis. There is no pneumoperitoneum identified. The imaged inferior cardiac chambers are mildly enlarged. There is fatty infiltration of the liver. The gallbladder, spleen, pancreas and adrenal glands are within normal limits. Kidneys, ureters and urinary bladder are unremarkable. No renal calculi or hydronephrosis. Prior hysterectomy. The abdominal aorta is normal in both course and caliber with mild mixed plaquing. No bulky retroperitoneal adenopathy. There is no focal small bowel abnormality or small bowel obstruction identified. Wall thickening with mucosal hyperemia and mild surrounding inflammatory stranding extends from the cecum to the rectum compatible with tena colitis. No evidence of acute appendicitis. Fat filled infraumbilical midline anterior abdominal wall hernia is noted anterior to the urinary bladder, diastases 3.6 cm. Note is made of diastases recti. Bones appear intact. Severe facet arthropathy at L5-S1. IMPRESSION: 1. Findings compatible with acute uncomplicated pancolitis, likely infectious or inflammatory in nature. 2. Fatty infiltration of the liver. 3. Prior hysterectomy. The above report was generated using voice recognition software. It may contain grammatical, syntax or spelling errors. Electronically signed by: Ángel Mir M.D. 11/14/2016 12:10 PM Dictated Date/Time: 11/14/2016 12:04 PM The status of this report is Signed. CHEST ONE VIEW PORTABLE HISTORY: 55 years-old Female CHEST PAIN acute atypical chest pain. COMPARISON: Chest radiograph 11/09/2016 TECHNIQUE: Portable upright AP view of the chest FINDINGS: Cardiac silhouette is mildly enlarged. Mild left basilar atelectasis is unchanged. There is pulmonary vascular congestion without pneumothorax, pleural effusion or focal airspace consolidation. Patient obesity noted. The bones are grossly intact. IMPRESSION: No acute cardiopulmonary process. The above report was generated using voice recognition software. It may contain grammatical, syntax or spelling errors. Electronically signed by: Ángel Mir M.D. 11/14/2016 10:00 AM Dictated Date/Time: 11/14/2016 9:59 AM The status of this report is Signed. Impression Assessment and Plan This is a 55 y oF with PMhx of asthma, HTN, HLD, diabetes type 2, irritable bowel disease, who presents after 10 days of ongoing diarrhea nausea and vomiting. The patient reports that this morning, at 0600 she called a friend reporting she was in distress with weakness, lightheadedness and dizziness which she thought was from dehydration. Abdominal pain Dehydration Nausea and vomiting History of irritable bowel syndrome - Admit the patient to telemetry - Afebrile, WBC = 11.9. - Continue IVF with NSS + KCl at 125m/hr for now, allowed clear liquid diet and if patient tolerates can advance - Antiemetics with Zofran, pain control with tylenol and toradol if needed. - Follow stool studies, C. difficile sent, guaiac all stools - no antibiotics started on the patient in the ER. - CT of the abdomen and pelvis reviewed as above- 1. Findings compatible with acute uncomplicated pancolitis, likely infectious or inflammatory in nature. 2. Fatty infiltration of the liver. 3. Prior hysterectomy. - Continue on Bentyl and famotidine Diabetes mellitus type 2 - ISS with Accu-Cheks achs - We'll hold metformin for now - Check an A1c with am labs Asthma - Patient uses her rescue albuterol inhaler at home, although has not required this evening with chest tightness. She was fearful that Dictation slight increase with use of albuterol rescue inhaler. - Dual nebs available q4h prn - CXR reviewed and negative Hypertension - Blood pressure has improved since being in the ER, continue losartan 50 mg daily. Patient reports inability to keep her medications down with nausea and vomiting, and questionable absorption with diarrhea - IV hydralazine when necessary - Will trend tropinins Hyperlipidemia - Check lipids, continue simvastatin 20Qpm Morbid obesity -BMI equals 41.6, diet and exercise was encouraged at bedside - Patient reports her diet consists of banana/bladder/nutella sandwich breakfast , sandwich or/salad at lunch, and either another bowl cereal or Ramen noodles in the evening CODE STATUS full code DVT ppx: Teds, SCDs, Lovenox 40 subcutaneous Disposition patient from home, lives by herself, PT and OT to eval: Level of Care Telemetry Advanced Directives Existing Advance Directive: No Existing Living Will: No Existing Power of Rn Clinical Appeals: No Existing Health Care Proxy: No Resuscitation Status FULL RESUSCITATION VTE Prophylaxis VTE Risk Assessment Done? Y/N: Yes Risk Level: Low Given or contraindicated: Enoxaparin (Lovenox)SQ, T.E.D. Stockings, SCD's Reviewed: Pt Seen/Exam by Me History Pt is feeling a bit improved s/p IVF. She has not had diarrhea or other bowel movement since arrival to the ED. No further n/v. Has not been able to tolerate PO at home. Was feeling better after IVF in the [facility] as outpt, however sx continued. Agree with HPI/ROS as noted. General Appearance: no apparent distress, obese Eye Exam: bilateral eye normal inspection, bilateral eye EOMI Respiratory: normal breath sounds, no respiratory distress Cardiovascular: normal peripheral pulses, regular rate, rhythm Gastrointestinal: soft, tenderness (diffuse TTP) Extremities: non-tender, no pedal edema Neurologic/Psychiatric: alert, oriented x 3 Skin Characteristics: normal color, warm/dry Assessment/Plan Agree with plan as outlined above Acute colitis noted on CT AP that has failed multiple attempts at outpt management Cx taken as outpt and pending Cdiff pending collection No recent abx use or hospitalizations Clears as able and can ADAT DM: Holding metformin due to contrast for CT SSI for now Daughter is at bedside. She is . I did advise her to limit contact with pt and practice good hand sanitation given .
[2016-11-14] MEDS ORDERED: HydrALAZINE HCL 20 MG/ML VIAL IV. PRN (13:30)
[2016-11-14] MEDS ORDERED: ALBUT/IPRATROP 3MG/0.5MG NEB 3 ML VIAL INH PRN (13:30)
[2016-11-14 14:55] VITALS: BP 149/88; PULSE 88; TEMP 36.9; O2SAT 92
[2016-11-14] MEDS: NSS + 20MEQ KCL 1000ML 1,000 ML IV SCH ×2 (15:27→23:21)
[2016-11-14 15:50] LABS: PROTHROMBIN TIME (PATIENT) 10.7 SECONDS (9.0-12.0)
[2016-11-14] MEDS: ENOXAPARIN 40 MG/0.4 ML SYR SC SCH (17:38)
[2016-11-14] MEDS ORDERED: GLUCOSE 40% GEL 15 GM TUBE PO PRN (18:30)
[2016-11-14] MEDS ORDERED: GLUCAGON FOR INJ 1 MG VIAL SQ PRN (18:30)
[2016-11-14] MEDS ORDERED: GLUCOSE 10 TABS/TUBE PO PRN (18:30)
[2016-11-14] MEDS ORDERED: DEXTROSE 50% 50 ML SYR IV PRN (18:30)
[2016-11-14 19:20] VITALS: BP 117/76; PULSE 79; TEMP 36.8; O2SAT 92
[2016-11-14] MEDS: FAMOTIDINE 20 MG TAB PO SCH (20:55)
[2016-11-14] MEDS: DICYCLOMINE HCL 20 MG TAB PO SCH (20:56)
[2016-11-14] MEDS: SIMVASTATIN 20 MG TAB PO SCH (20:56)
[2016-11-14] MEDS: INSULIN ASPART 100 UNITS/ML 3 ML PEN SC SCH (20:59)
[2016-11-14] MEDS: KETOROLAC TROMETHAMINE 30 MG/ML VIAL IV PRN (23:29)
[2016-11-14 23:35] VITALS: BP 142/72; PULSE 83; TEMP 36.8; O2SAT 94
[2016-11-15] VITALS (8 sets, daily range): BP systolic 125–160; BP diastolic 72–89; PULSE 52–99; TEMP 36.4–36.8; O2SAT 91–95
[2016-11-15] MEDS: ONDANSETRON INJ 2 MG/ML 2 ML VIAL IV PRN ×2 (04:08→14:12)
[2016-11-15] MEDS: CODEINE SULFATE 30 MG TAB PO PRN (05:16)
[2016-11-15] MEDS: NSS + 20MEQ KCL 1000ML 1,000 ML IV SCH ×2 (06:18→14:09)
--- NOTE | 2016-11-15 07:36 | Hospitalist Progress Note ---
Hospitalist Progress Note Date of Service Nov 15, 2016. (Hazel Guajardo PA-C) Subjective Pt evaluation today including: conversation w/ patient, physical exam, chart review, lab review, review of studies Pain: abd pain improved PO Intake: tolerating clear liquids Voiding: no voiding problems The patient was seen and examined this morning. Pt reports doing ok, she had episodes of palpitations overnight along with severe headache and so had a dose of toradol which helped relieve it. She did not have any chest pain. Pt notes it is essentially gone this morning. She has been tolerating clear liquids, but is nauseous occasionally. Early this morning was having dry heaves. Her last bout of diarrhea was last evening. Discussion regarding hx of colonoscopy reveal she has never had one, and hasn't seen GI in ~15 years. Additional Comments: Constitutional: No fever, sweats or chills Eyes: No diplopia, no worsening or blurred vision ENT: normal hearing, no trouble swallowing Respiratory: No cough, sputum, dyspnea at rest or on exertion Cardiovascular: See HPI Abdomen: + pain epigastric and LUQ, + nausea, + dry heaves no vomiting, + diarrhea yesterday. Musculoskeletal: No joint pain, calf pain, swelling Neurologic: Uses a walker for ambulation, right hip flexor weakness. Psychiatric: No anxiety or depression Skin: No rash or itch (Hazel Guajardo, JULIO) Objective Vital Signs Date Time Temp Pulse Resp B/P (MAP) Pulse Ox O2 Delivery O2 Flow Rate FiO2 11/15/16 05:17 36.8 99 18 144/74 (97) 11/15/16 04:05 Room Air 11/15/16 00:05 Room Air 11/15/16 00:05 36.8 83 18 142/72 (95) 94 Room Air 11/14/16 23:35 36.8 83 18 142/72 (95) 94 11/14/16 19:20 36.8 79 18 117/76 (90) 92 Room Air 11/14/16 16:00 Room Air 11/14/16 14:55 Room Air 11/14/16 14:55 36.9 88 20 149/88 (108) 92 Room Air 11/14/16 10:44 78 20 160/84 96 Room Air 11/14/16 09:17 91 11/14/16 09:13 36.6 100 20 182/103 96 Room Air (Hazel Guajardo PA-C) Physical Exam Notes: General: awake, alert, NAD, morbidly obese Head: Normocephalic, atraumatic ENT: PERRL, EOMI, no pharyngeal exudate, mucous membranes moist Chest: Clear to auscultation, on room air, no adventitious breath sounds Cardiac: Regular rate and rhythm, no murmur, no JVD, normal peripheral pulses, good capillary refill Abdominal: NABS x4q, soft, tender to palpation in epigastric, LUQ and LLQ with deep palpation, + pain with percussion in epigastric and LUQ slightly improved, no rebound, guarding or tenderness Extremities: Normal inspection, no peripheral edema or erythema, calfs nontender to palpation. No apparent lesions or abrasions. Psych: Normal mood and affect Neuro: AAO x 3, strength intact bilaterally and related 5/5 in upper extremities , right hip flexor rated 3/5 in strength and left is 5/5, no motor deficits, speech is clear, no peripheral sensory deficits. All other areas of strength tested and are negative. (Hazel Guajardo PA-C) Laboratory Results Last 24 Hours Test 11/14/16 09:15 11/14/16 09:35 11/14/16 09:46 11/14/16 11:34 White Blood Count 11.90 K/uL Red Blood Count 4.52 M/uL Hemoglobin 13.8 g/dL Hematocrit 40.1 % Mean Corpuscular Volume 88.7 fL Mean Corpuscular Hemoglobin 30.5 pg Mean Corpuscular Hemoglobin Concent 34.4 g/dl Platelet Count 280 K/uL Mean Platelet Volume 10.1 fL Neutrophils (%) (Auto) 67.2 % Lymphocytes (%) (Auto) 21.0 % Monocytes (%) (Auto) 8.5 % Eosinophils (%) (Auto) 2.2 % Basophils (%) (Auto) 0.3 % Neutrophils # (Auto) 8.00 K/uL Lymphocytes # (Auto) 2.50 K/uL Monocytes # (Auto) 1.01 K/uL Eosinophils # (Auto) 0.26 K/uL Basophils # (Auto) 0.04 K/uL RDW Standard Deviation 39.3 fL RDW Coefficient of Variation 12.4 % Immature Granulocyte % (Auto) 0.8 % Immature Granulocyte # (Auto) 0.09 K/uL Sodium Level 142 mmol/L Potassium Level 3.4 mmol/L Chloride Level 106 mmol/L Carbon Dioxide Level 29 mmol/L Anion Gap 7.0 mmol/L Blood Urea Nitrogen 9 mg/dl Creatinine 0.66 mg/dl Est Creatinine Clear Calc Drug Dose 116.8 ml/min Estimated GFR () 115.3 Estimated GFR (Non- 99.4 BUN/Creatinine Ratio 13.7 Random Glucose 200 mg/dl Calcium Level 8.9 mg/dl Total Bilirubin 1.0 mg/dl Direct Bilirubin 0.2 mg/dl Aspartate Amino Transf (AST/SGOT) 42 U/L Alanine Aminotransferase (ALT/SGPT) 50 U/L Alkaline Phosphatase 77 U/L Total Creatine Kinase 64 U/L Creatine Kinase MB < 0.5 ng/ml Creatine Kinase MB Ratio Total Protein 7.7 gm/dl Albumin 3.4 gm/dl Lipase 108 U/L Thyroid Stimulating Hormone (TSH) 1.270 uIu/ml Bedside Troponin I < 0.030 ng/ml Urine Color YELLOW Urine Appearance CLEAR Urine pH 6.5 Urine Specific [place] 1.011 Urine Protein NEG Urine Glucose (UA) NEG Urine Ketones 1+ Urine Occult Blood NEG Urine Nitrite NEG Urine Bilirubin NEG Urine Urobilinogen NEG Urine Leukocyte Esterase NEG Test 11/14/16 12:35 11/14/16 15:32 11/14/16 16:15 11/14/16 16:54 Bedside Lactic Acid Venous 0.72 mmol/L Prothrombin Time 10.7 SECONDS Prothromb Time International Ratio 1.0 Troponin I < 0.015 ng/ml Bedside Glucose 132 mg/dl 131 mg/dl Test 11/14/16 17:30 11/14/16 20:37 11/14/16 23:08 11/15/16 01:55 Stool Occult Blood NEGATIVE Bedside Glucose 143 mg/dl Troponin I < 0.015 ng/ml < 0.015 ng/ml Test 11/15/16 07:05 11/15/16 07:14 (Hazel Guajardo PA-C) Assessment and Plan This is a 55 y oF with PMhx of asthma, HTN, HLD, diabetes type 2, irritable bowel disease, who presents after 10 days of ongoing diarrhea nausea and vomiting. The patient reports that this morning, at 0600 she called a friend reporting she was in distress with weakness, lightheadedness and dizziness which she thought was from dehydration. Abdominal pain Dehydration Nausea and vomiting History of irritable bowel syndrome - Afebrile, WBC = 11.9. - Continue IVF with NSS + KCl at 125m/hr for now, allowed clear liquid diet and if patient tolerates can advance - GI consulted for possible scope tomorrow - no hx of colonoscopy - will make NPO after 2400 in anticipation. Allow bowel prep up to GI. - Antiemetics with Zofran, pain control with tylenol and toradol if needed. - Follow stool studies, C. difficile negative, guaiac all stools - no antibiotics started on the patient in the ER. - CT of the abdomen and pelvis reviewed as above- 1. Findings compatible with acute uncomplicated pancolitis, likely infectious or inflammatory in nature. 2. Fatty infiltration of the liver. 3. Prior hysterectomy. - No diverticulitis. - Continue on Bentyl and famotidine - Checking celiacs panel Diabetes mellitus type 2 - ISS with Accu-Cheks achs - We'll hold metformin for now - Check an A1c with am labs Asthma - Patient uses her rescue albuterol inhaler at home, although has not required this evening with chest tightness. She was fearful that palpitations would increase with use of albuterol rescue inhaler. - Duonebs available q4h prn - CXR reviewed and negative Hypertension - Blood pressure has improved since being in the ER, continue losartan 50 mg daily. Patient reports inability to keep her medications down with nausea and vomiting, and questionable absorption with diarrhea - IV hydralazine when necessary - Troponins x 3 negative, EKG repeated overnight for worsening boyd and chest tightness. Hyperlipidemia - Check lipids, continue simvastatin 20Qpm Morbid obesity - BMI equals 41.6, diet and exercise was encouraged at bedside - May ask [employer] biomanufacturing technician to see the patient to discuss healthy/affordable meal options tomorrow. CODE STATUS full code DVT ppx: Teds, SCDs, Lovenox 40 subcutaneous Disposition: pt from home, possible colonoscopy tomorrow (Hazel Guajardo, JULIO) PA Physician Supervision Note: I interviewed and examined the patient. Discussed with Hazel Guajardo PAC and agree with findings and plan as documented in the note. Any exceptions or clarifications are listed here: None Patient presents with bloody bowel movements, has a history of IBDZ. she has stable h/h and negative infectious work up so far vitals are stable abd with nabs and some LLQ tenderness Possible gib bleeding, will consult gi med, has been with no appreciable foot intake for 2 days, will consider endoscopy if GI recommends Documented By: Nino Melissa (Nino Melissa M.D.)
[2016-11-15] MEDS: SERTRALINE HCL 100 MG TAB PO SCH (07:57)
[2016-11-15] MEDS: FAMOTIDINE 20 MG TAB PO SCH ×2 (07:58→20:56)
[2016-11-15] MEDS: MULTIVITAMIN TAB PO SCH (07:58)
[2016-11-15] MEDS: ASPIRIN 81 MG ECTAB PO SCH (07:58)
[2016-11-15] MEDS: DICYCLOMINE HCL 20 MG TAB PO SCH ×2 (07:58→20:56)
[2016-11-15] MEDS: LOSARTAN POTASSIUM 50 MG TAB PO SCH (07:58)
[2016-11-15 08:00] LABS: BUN/CREATININE RATIO 7.2 (10-20); CALCIUM 8.3 mg/dl (8.5-10.1); CREATININE 0.5 mg/dl (0.60-1.20); POTASSIUM 3.6 mmol/L (3.5-5.1)
[2016-11-15 08:01] LABS: CHOLESTEROL/HDL RATIO 3.1; HEMATOCRIT 34.3 % (37-47); MEAN CELL VOLUME 90.5 fL (80-100); MEAN CORPUSCULAR HEMOGLOBIN 30.9 pg (25-34); MEAN CORPUSCULAR HGB CONC 34.1 g/dl (32-36); PLATELET COUNT 235 K/uL (130-400); RED BLOOD COUNT 3.79 M/uL (4.2-5.4); WHITE BLOOD COUNT 9.59 K/uL (4.8-10.8)
[2016-11-15 09:08] LABS: BASO % 0.4 %; BASO ABS # 0.04 K/uL (0-0.2); COMPLETE YES; EOS % 3.9 %; IG% 0.7 %; LYMPH % 29.8 %; LYMPH ABS # 2.86 K/uL (1.2-3.4); MONO % 9.5 %; NEUT % 55.7 %
[2016-11-15] MEDS: INSULIN ASPART 100 UNITS/ML 3 ML PEN SC SCH ×4 (09:19→20:57)
[2016-11-15] MEDS: ACETAMINOPHEN 325 MG TAB PO PRN (14:16)
[2016-11-15] MEDS: ENOXAPARIN 40 MG/0.4 ML SYR SC SCH (17:40)
[2016-11-15] MEDS: SIMVASTATIN 20 MG TAB PO SCH (21:31)
[2016-11-16] VITALS (8 sets, daily range): BP systolic 125–172; BP diastolic 76–86; PULSE 66–83; TEMP 36.5–37.1; O2SAT 92–97; Ht 162.6 cm; Wt 127.1 kg
[2016-11-16] MEDS: ACETAMINOPHEN 325 MG TAB PO PRN ×3 (01:49→14:20)
[2016-11-16] MEDS: NSS + 20MEQ KCL 1000ML 1,000 ML IV SCH ×2 (01:51→14:21)
[2016-11-16] MEDS: ONDANSETRON INJ 2 MG/ML 2 ML VIAL IV PRN (01:53)
[2016-11-16 07:32] LABS: BASO % 0.4 %; BASO ABS # 0.04 K/uL (0-0.2); COMPLETE YES; EOS % 4.1 %; HEMATOCRIT 32.8 % (37-47); IG% 1.2 %; LYMPH % 28.5 %; LYMPH ABS # 2.66 K/uL (1.2-3.4); MEAN CELL VOLUME 91.1 fL (80-100); MEAN CORPUSCULAR HEMOGLOBIN 31.4 pg (25-34); MEAN CORPUSCULAR HGB CONC 34.5 g/dl (32-36); MEAN PLATELET VOLUME 9.6 fL (7.4-10.4); MONO % 11.3 %; NEUT % 54.5 %; PLATELET COUNT 221 K/uL (130-400); WHITE BLOOD COUNT 9.33 K/uL (4.8-10.8)
[2016-11-16 07:56] LABS: CALCIUM 8.3 mg/dl (8.5-10.1); CREATININE 0.52 mg/dl (0.60-1.20); POTASSIUM 3.7 mmol/L (3.5-5.1)
[2016-11-16] MEDS: MULTIVITAMIN TAB PO SCH (08:09)
[2016-11-16] MEDS: DICYCLOMINE HCL 20 MG TAB PO SCH ×2 (08:09→20:29)
[2016-11-16] MEDS: FAMOTIDINE 20 MG TAB PO SCH ×2 (08:09→20:29)
[2016-11-16] MEDS: LOSARTAN POTASSIUM 50 MG TAB PO SCH (08:10)
[2016-11-16] MEDS: INSULIN ASPART 100 UNITS/ML 3 ML PEN SC SCH ×4 (08:17→20:27)
[2016-11-16] MEDS: SERTRALINE HCL 100 MG TAB PO SCH (08:52)
[2016-11-16] MEDS: ASPIRIN 81 MG ECTAB PO SCH (12:35)
--- NOTE | 2016-11-16 14:05 | Hospitalist Progress Note ---
Hospitalist Progress Note Date of Service Nov 16, 2016. (Radha Zaldivar CRNP) Subjective Pt evaluation today including: conversation w/ patient, physical exam, chart review, lab review, review of inpatient medication list Voiding: no voiding problems Ms. Carbajal continues to be nauseas but has no vomited since coming to the hospital. She does feel that if she at more than broth she would vomit. She has not had any diarrhea today but attributes that to not eating. Constitutional: No fever, No chills Abdomen: + nausea, No vomiting, No diarrhea Female : No dysuria All Other Systems: Reviewed and Negative (Radha Zaldivar CRNP) Medications Medications Administered Medications (Trade) Dose Ordered Sig/Christian Route Start Time Stop Time Status Last Admin Dose Admin Sodium Chloride 1,000 ml @ 999 mls/hr Q1H1M STAT IV 11/14/16 09:35 11/14/16 10:35 DC 11/14/16 09:35 999 MLS/HR Sodium Chloride 1,000 ml @ 150 mls/hr Q6H40M ONCE IV 11/14/16 09:35 11/14/16 15:08 DC 11/14/16 09:35 150 MLS/HR Ketorolac Tromethamine (Toradol Inj) 30 mg NOW STAT IV 11/14/16 09:35 11/14/16 09:38 DC 11/14/16 09:46 30 MG Ondansetron HCl (Zofran Inj) 4 mg NOW STAT IV 11/14/16 09:35 11/14/16 09:38 DC 11/14/16 09:45 4 MG Sodium Chloride 1,000 ml @ 999 mls/hr Q1H1M STAT IV 11/14/16 11:22 11/14/16 12:22 DC 11/14/16 11:33 999 MLS/HR Enoxaparin Sodium (Lovenox Inj) 40 mg Q24H SC 11/14/16 18:00 12/14/16 17:59 11/15/16 17:40 40 MG Potassium Chloride/Sodium Chloride 1,000 ml @ 80 mls/hr [id number] IV 11/14/16 15:00 12/14/16 14:59 11/16/16 01:51 80 MLS/HR Acetaminophen (Tylenol Tab) 650 mg Q4H PRN PO 11/14/16 13:30 12/14/16 13:29 11/16/16 07:06 650 MG Ondansetron HCl (Zofran Inj) 4 mg Q6H PRN IV 11/14/16 13:30 12/14/16 13:29 11/16/16 01:53 4 MG Aspirin (Ecotrin Tab) 81 mg DAILY PO 11/15/16 09:00 12/15/16 08:59 11/16/16 12:35 81 MG Dicyclomine HCl (Bentyl Tab) 20 mg BID PO 11/14/16 21:00 12/14/16 20:59 11/16/16 08:09 20 MG Famotidine (Pepcid Tab) 20 mg BID PO 11/14/16 21:00 12/14/16 20:59 11/16/16 08:09 20 MG Losartan Potassium (coZAAR TAB) 50 mg DAILY PO 11/15/16 09:00 12/15/16 08:59 11/16/16 08:10 50 MG Multivitamins (Multivitamin Tab) 1 tab DAILY PO 11/15/16 09:00 12/15/16 08:59 11/16/16 08:09 1 TAB Sertraline HCl (Zoloft Tab) 100 mg DAILY PO 11/15/16 09:00 12/15/16 08:59 11/16/16 08:52 100 MG Simvastatin (Zocor Tab) 20 mg QPM PO 11/14/16 21:00 12/14/16 20:59 11/15/16 21:31 20 MG Ketorolac Tromethamine (Toradol Inj) 30 mg Q6H PRN IV 11/14/16 14:00 11/19/16 13:59 11/14/16 23:29 30 MG Insulin Aspart (novoLOG ASPART) SLIDING SCALE G... ACHS SC 11/14/16 21:00 12/14/16 20:59 11/16/16 12:27 8 UNITS Codeine Sulfate (Codeine Tab) 30 mg Q6H PRN PO 11/15/16 04:30 11/29/16 04:29 11/15/16 05:16 30 MG (Radha Zaldivar, FAUSTO) Objective Vital Signs Date Time Temp Pulse Resp B/P (MAP) Pulse Ox O2 Delivery O2 Flow Rate FiO2 11/16/16 12:00 Room Air 11/16/16 11:13 36.7 72 18 172/82 (112) 92 Room Air 11/16/16 10:17 72 92 11/16/16 08:00 Room Air 11/16/16 07:25 36.9 83 20 135/76 (95) 93 Room Air 11/16/16 04:00 Room Air 11/16/16 04:00 36.8 70 16 148/80 (102) 92 Room Air 11/16/16 00:17 36.6 79 16 125/79 (94) 92 Room Air 11/16/16 00:00 Room Air 11/15/16 20:19 36.4 73 18 125/74 (91) 95 Room Air 11/15/16 20:00 Room Air 11/15/16 16:00 Room Air 11/15/16 16:00 91 Room Air 11/15/16 15:48 36.8 75 18 127/76 (93) 91 Room Air (Radha Zaldivar CRNP) Physical Exam Notes: General: no distress Eyes: normal inspection, PERLL Respiratory: chest non tender, clear to auscultation, normal breath sounds, no respiratory distress, no accessory muscle use Cardiac: regular rate and rhythm, no rub or gallop, no murmur, no edema, no jvd GI/: hypoactive bowel sounds, abdominal tenderness, soft, non distended Extremities: normal range of motion, normal strength, non tender Neuro/Psych: alert and oriented x 3, normal mood and affect Skin: normal color, dry (Radha Zaldivar CRNP) Laboratory Results Last 24 Hours Test 11/15/16 16:15 11/15/16 20:38 11/16/16 07:10 11/16/16 07:15 Bedside Glucose 100 mg/dl 105 mg/dl 141 mg/dl White Blood Count 9.33 K/uL Red Blood Count 3.60 M/uL Hemoglobin 11.3 g/dL Hematocrit 32.8 % Mean Corpuscular Volume 91.1 fL Mean Corpuscular Hemoglobin 31.4 pg Mean Corpuscular Hemoglobin Concent 34.5 g/dl Platelet Count 221 K/uL Mean Platelet Volume 9.6 fL Neutrophils (%) (Auto) 54.5 % Lymphocytes (%) (Auto) 28.5 % Monocytes (%) (Auto) 11.3 % Eosinophils (%) (Auto) 4.1 % Basophils (%) (Auto) 0.4 % Neutrophils # (Auto) 5.09 K/uL Lymphocytes # (Auto) 2.66 K/uL Monocytes # (Auto) 1.05 K/uL Eosinophils # (Auto) 0.38 K/uL Basophils # (Auto) 0.04 K/uL RDW Standard Deviation 42.4 fL RDW Coefficient of Variation 12.8 % Immature Granulocyte % (Auto) 1.2 % Immature Granulocyte # (Auto) 0.11 K/uL Sodium Level 145 mmol/L Potassium Level 3.7 mmol/L Chloride Level 112 mmol/L Carbon Dioxide Level 26 mmol/L Anion Gap 7.0 mmol/L Blood Urea Nitrogen 5 mg/dl Creatinine 0.52 mg/dl Est Creatinine Clear Calc Drug Dose 162.6 ml/min Estimated GFR () 124.7 Estimated GFR (Non- 107.6 BUN/Creatinine Ratio 10.0 Random Glucose 131 mg/dl Calcium Level 8.3 mg/dl Test 11/16/16 11:22 Bedside Glucose 131 mg/dl (Radha Zaldivar, FAUSTO) Assessment and Plan This is a 55 y oF with PMhx of asthma, HTN, HLD, diabetes type 2, irritable bowel disease, who presents after 10 days of ongoing diarrhea nausea and vomiting. The patient reports that this morning, at 0600 she called a friend reporting she was in distress with weakness, lightheadedness and dizziness which she thought was from dehydration. Abdominal pain Dehydration Nausea and vomiting History of irritable bowel syndrome - Continue IVF with NSS + KCl at 125m/hr for now, clear liquid diet, npo after midnight for colonoscopy - GI consulted- colonoscopy tomorrow - no hx of colonoscopy. Allow bowel prep up to GI. - Antiemetics with Zofran, pain control with tylenol and toradol if needed. - C.diff and stool cultures negative - Continue on Bentyl and famotidine - Checking celiacs panel Diabetes mellitus type 2 - ISS with Accu-Cheks achs - We'll hold metformin for now - A1c 8.1 Asthma - Patient uses her rescue albuterol inhaler at home, although has not required this evening with chest tightness. She was fearful that palpitations would increase with use of albuterol rescue inhaler. - Duonebs available q4h prn - CXR reviewed and negative Hypertension - Blood pressure has improved since being in the ER, continue losartan 50 mg daily. Patient reports inability to keep her medications down with nausea and vomiting, and questionable absorption with diarrhea - IV hydralazine when necessary - Troponins x 3 negative Hyperlipidemia - Check lipids, continue simvastatin 20Qpm Morbid obesity - BMI equals 41.6, diet and exercise was encouraged at bedside - May ask conveyor tender to see the patient to discuss healthy/affordable meal options following results of sccope. CODE STATUS full code DVT ppx: Teds, SCDs, Lovenox 40 subcutaneous Disposition: pt from home, possible colonoscopy tomorrow (Radha Zaldivar ., FAUSTO) PRACTICE ADMINISTRATOR Physician Supervision Note: I interviewed and examined the patient. Discussed with Gail Zaldivar PRACTICE ADMINISTRATOR and agree with findings and plan as documented in the note. Any exceptions or clarifications are listed here: None Patient shows recurrent diarrhea and colitis on CT scan for colonoscopy 11/17 Vital signs are stable Abdomen is soft mildly tender left lower quadrant no rebound or guarding Colitis with negative stool cultures for colonoscopy 11/17 continue supportive care and pain control until that time Documented By: Nino Melissa (Nino Melissa M.D.)
[2016-11-16] MEDS: ENOXAPARIN 40 MG/0.4 ML SYR SC SCH (17:40)
--- NOTE | 2016-11-16 17:49 | GASTROINTESTINAL CONSULTATION ---
DATE OF CONSULTATION: 11/16/2016 AGE: 55. SEX: Female. RACE: . ATTENDING PHYSICIAN: Dr. Melissa. CONSULTING PHYSICIAN: Dr. Canas. REASON FOR CONSULTATION: Diarrhea. HISTORY OF PRESENT ILLNESS: Karly Carbajal is a 55-year-old female who presented to the Department of Emergency Medicine with nausea as well as 10 days of diarrhea. She stated that she had multiple episodes of diarrhea and experienced lightheadedness and dizziness and felt that she was dehydrated. She subsequently presented to the Department of Emergency Medicine on November 14. Upon arrival, she was noted to have an H&H of 13.8 and 40.1 with a white blood cell count of 11.9. Her BUN and creatinine on arrival showed a BUN of 9 and the creatinine of 0.66. Her stool was occult blood negative and stool studies including C. diff toxin as well as Salmonella, Shigella and campylobacter evaluations were negative thus far. We were asked to see the patient in consultation for her diarrhea. At the time that I saw the patient, she states that she has not had any episodes of diarrhea over the last 12 hours and she stated previously that she was having approximately 8-10 bowel movements a day, liquid in nature. She denied any blood and stated that she has not had any previous bowel surgery. She denies ever having undergone a cholecystectomy and states that she has no family history of GI malignancy or inflammatory bowel disease. Her only other symptom that she complained to me is of nausea which occurs periodically throughout the past 10 days though prior to this she was not experiencing any symptoms of nausea. She denies any further complaints including vomiting, fevers, chills, hematemesis, melena, hematochezia, jaundice, acholic stools, dark urine, pruritus or fatigue. She does state that her symptoms have improved since she arrived. PAST MEDICAL HISTORY: Includes asthma, diabetes, hyperlipidemia, hypertension, irritable bowel syndrome. PAST SURGICAL HISTORY: Included CARLOS/BSO. ALLERGIES: MORPHINE AND ANESTHESIA. MEDICATIONS: Her medications at present include aspirin 81 mg daily, Cozaar 50 mg daily, multivitamin 1 tablet daily, Zoloft 100 mg daily, codeine 30 mg p.o. q. 6 hours p.r.n. pain, Bentyl 20 mg p.o. b.i.d., Pepcid 20 mg p.o. b.i.d., Zocor 20 mg p.o. q.p.m., sliding scale insulin, Lovenox 40 mg subQ q. 24 hours, Toradol 30 mg IV q. 6 hours p.r.n. pain, Tylenol 650 mg p.o. q. 4 p.r.n. pain, Zofran 4 mg IV q. 6 p.r.n. nausea, hydralazine 10 mg IV q. 4 p.r.n. hypertension, DuoNeb via nebulizer 4 times daily as needed for shortness of breath. SOCIAL HISTORY: She is . She denies any tobacco, alcohol or illicit drug use. FAMILY HISTORY: Negative for GI malignancy or inflammatory bowel disease. REVIEW OF SYSTEMS: Negative x12 system review other than pertinent positives listed in the HPI. PHYSICAL EXAMINATION: VITAL SIGNS: Temperature 36.7, pulse 72, respirations 18, blood pressure 172/82, pulse ox 92% on room air. GENERAL: She is awake, cooperative, in no acute distress. HEAD: Normocephalic, atraumatic. EYES: Pupils equally round. Extraocular muscles are intact. ENT: External evaluation of ears and nose are normal. Oropharynx is clear. NECK: Soft, supple. No JVD or lymphadenopathy. CHEST: Clear to auscultation bilaterally. CARDIOVASCULAR SYSTEM: Regular rate and rhythm. ABDOMEN: Soft, nontender, nondistended. Positive bowel sounds. There is no hepatosplenomegaly or stigmata of chronic liver disease. EXTREMITIES: No clubbing, cyanosis, or edema. SKIN: Soft, pink. Good turgor. LABORATORY DATA: H&H 11.3 and 32.8. IMPRESSION: A 55-year-old female with 10-day history of diarrhea and intermittent nausea and previous abdominal pain. PLAN: Currently, I recommend that the patient be given clear liquids. She will get bowel prep tonight. She will be kept n.p.o. after midnight to undergo colonoscopy tomorrow for further evaluation of her symptoms. She has never undergone a colonoscopy previously. I will make further recommendations following the above noted testing in the interim. Please continue supportive care. Once again, thanks for allowing me to participate in the care of this patient. If you have any further questions, please do not hesitate in contacting me.
[2016-11-16] MEDS ORDERED: LAVAGE SOLUTION 4000ML PO SCH (20:00)
[2016-11-16] MEDS: SIMVASTATIN 20 MG TAB PO SCH (20:28)
[2016-11-17] MEDS: KETOROLAC TROMETHAMINE 30 MG/ML VIAL IV PRN (02:53)
[2016-11-17 04:00] VITALS: BP 165/80; PULSE 74; TEMP 36.6; O2SAT 94
[2016-11-17] MEDS: NSS + 20MEQ KCL 1000ML 1,000 ML IV SCH ×2 (06:09→17:34)
[2016-11-17 07:20] VITALS: BP 172/83; PULSE 74; TEMP 36.7; O2SAT 94
[2016-11-17 07:57] LABS: BASO % 0.3 %; BASO ABS # 0.03 K/uL (0-0.2); COMPLETE YES; EOS % 3.6 %; IG% 1.3 %; LYMPH ABS # 2.66 K/uL (1.2-3.4); MEAN CELL VOLUME 90.4 fL (80-100); MEAN CORPUSCULAR HEMOGLOBIN 30.1 pg (25-34); MEAN CORPUSCULAR HGB CONC 33.2 g/dl (32-36); NEUT % 52.8 %; PLATELET COUNT 233 K/uL (130-400); RED BLOOD COUNT 3.76 M/uL (4.2-5.4); WHITE BLOOD COUNT 8.58 K/uL (4.8-10.8)
[2016-11-17] MEDS: INSULIN ASPART 100 UNITS/ML 3 ML PEN SC SCH ×4 (08:06→20:19)
[2016-11-17] MEDS: LOSARTAN POTASSIUM 50 MG TAB PO SCH (08:08)
[2016-11-17 08:41] LABS: CREATININE 0.48 mg/dl (0.60-1.20)
[2016-11-17 11:32] VITALS: BP 181/80; PULSE 71; TEMP 36.7; O2SAT 94
[2016-11-17] MEDS: DICYCLOMINE HCL 20 MG TAB PO SCH ×2 (11:42→20:11)
[2016-11-17] MEDS: FAMOTIDINE 20 MG TAB PO SCH ×2 (11:43→20:11)
--- NOTE | 2016-11-17 12:45 | Hospitalist Progress Note ---
Hospitalist Progress Note Date of Service Nov 17, 2016. (Radha Zaldivar CRNP) Subjective Pt evaluation today including: conversation w/ patient, physical exam, chart review, lab review, review of studies, review of inpatient medication list Voiding: no voiding problems Ms. Carbajal is feeling very run down today. She bowel prepped over the night for colonoscopy today. She is not feeling nauseas but has been NPO since midnight. Constitutional: No fever, No chills Respiratory: No shortness of breath Abdomen: No pain, No nausea, No vomiting, No constipation Female : No dysuria All Other Systems: Reviewed and Negative (Radha Zaldivar CRNP) Medications Medications (Trade) Dose Ordered Sig/Christian Route Start Time Stop Time Status Last Admin Dose Admin Polyethylene Glycol/ Electrolytes (Golytely Soln) 16 dose TODAY@1999 PO 11/16/16 20:00 11/16/16 23:59 DC 11/16/16 20:27 16 DOSE (Radha Zaldivar CRNP) Objective Vital Signs Date Time Temp Pulse Resp B/P (MAP) Pulse Ox O2 Delivery O2 Flow Rate FiO2 11/17/16 11:32 36.7 71 20 181/80 (113) 94 Room Air 11/17/16 08:00 Room Air 11/17/16 07:20 36.7 74 20 172/83 (112) 94 Room Air 11/17/16 04:02 Room Air 11/17/16 04:00 36.6 74 20 165/80 (108) 94 Room Air 11/17/16 00:05 Room Air 11/16/16 23:48 36.5 66 20 152/86 (108) 97 Room Air 11/16/16 20:06 36.9 70 16 151/81 (104) 93 Room Air 11/16/16 20:05 Room Air 11/16/16 15:05 37.1 72 18 148/83 (104) 94 Room Air (Radha Zaldivar CRNP) Physical Exam Notes: General: no distress Eyes: normal inspection, PERLL Respiratory: chest non tender, clear to auscultation, normal breath sounds, no respiratory distress, no accessory muscle use Cardiac: regular rate and rhythm, no rub or gallop, no murmur, no edema, no jvd GI/: active bowel sounds, no abd pain or tenderness, soft, non distended Extremities: normal range of motion, normal strength, non tender Neuro/Psych: alert and oriented x 3, normal mood and affect Skin: normal color, dry (Radha Zaldivar CRNP) Laboratory Results Last 24 Hours Test 11/16/16 16:43 11/16/16 19:32 11/17/16 07:21 11/17/16 07:30 Bedside Glucose 107 mg/dl 113 mg/dl 110 mg/dl White Blood Count 8.58 K/uL Red Blood Count 3.76 M/uL Hemoglobin 11.3 g/dL Hematocrit 34.0 % Mean Corpuscular Volume 90.4 fL Mean Corpuscular Hemoglobin 30.1 pg Mean Corpuscular Hemoglobin Concent 33.2 g/dl Platelet Count 233 K/uL Mean Platelet Volume 10.0 fL Neutrophils (%) (Auto) 52.8 % Lymphocytes (%) (Auto) 31.0 % Monocytes (%) (Auto) 11.0 % Eosinophils (%) (Auto) 3.6 % Basophils (%) (Auto) 0.3 % Neutrophils # (Auto) 4.53 K/uL Lymphocytes # (Auto) 2.66 K/uL Monocytes # (Auto) 0.94 K/uL Eosinophils # (Auto) 0.31 K/uL Basophils # (Auto) 0.03 K/uL RDW Standard Deviation 41.5 fL RDW Coefficient of Variation 12.8 % Immature Granulocyte % (Auto) 1.3 % Immature Granulocyte # (Auto) 0.11 K/uL Creatinine 0.48 mg/dl Est Creatinine Clear Calc Drug Dose 175.7 ml/min Estimated GFR () 128.0 Estimated GFR (Non- 110.4 Test 11/17/16 11:26 Bedside Glucose 107 mg/dl (Radha Zaldivar CRNP) Assessment and Plan This is a 55 y oF with PMhx of asthma, HTN, HLD, diabetes type 2, irritable bowel disease, who presented after 10 days of ongoing diarrhea nausea and vomiting. The patient reported that on the morning of admission, at 0600 she called a friend reporting she was in distress with weakness, lightheadedness and dizziness which she thought was from dehydration. Abdominal pain Dehydration Nausea and vomiting History of irritable bowel syndrome - Continue IVF with NSS + KCl at 125m/hr for now - GI consulted- colonoscopy today - Antiemetics with Zofran, pain control with tylenol and toradol if needed. - C.diff and stool cultures negative - Continue on Bentyl and famotidine - Checking celiacs panel Diabetes mellitus type 2 - ISS with Accu-Cheks achs - We'll hold metformin for now - A1c 8.1 Asthma - Patient uses her rescue albuterol inhaler at home - Duonebs available q4h prn - CXR reviewed and negative Hypertension - Blood pressure has improved since being in the ER, continue losartan 50 mg daily. - IV hydralazine when necessary - Troponins x 3 negative Hyperlipidemia - Check lipids, continue simvastatin 20Qpm Morbid obesity - BMI equals 41.6, diet and exercise was encouraged at bedside - May ask welding machine operator plasma arc to see the patient to discuss healthy/affordable meal options following results of scope. CODE STATUS full code DVT ppx: Teds, SCDs, Lovenox 40 subcutaneous Disposition: pt from home, possible colonoscopy tomorrow (Radha Zaldivar ., FAUSTO) GAS STATION SERVICE ATTENDANT Physician Supervision Note: I interviewed and examined the patient. Discussed with Radha Zaldivar GAS STATION SERVICE ATTENDANT and agree with findings and plan as documented in the note. Any exceptions or clarifications are listed here: None Patient is still with diarrhea today plus minus abdominal pain had a colonoscopy with is not so significant pathology Vital signs are stable Abdomen is soft minorly tender lower quadrants With no definitive pathology will advance diet able antidiarrheals and elimination diet which she tolerated to full that she may go home this is anticipated from 11/18 Documented By: Nino Melissa (Nino Melissa M.D.)
[2016-11-17] MEDS ORDERED: FENTANYL CITRATE INJ 50 MCG/1 ML 2 ML VIAL ONE (13:45)
[2016-11-17] MEDS ORDERED: LIDOCAINE HCL 2% 2 ML VIAL (20MG/ML) ONE (13:46)
[2016-11-17] MEDS ORDERED: MIDAZOLAM HCL 1 MG/ML 2ML VIAL ONE (13:46)
[2016-11-17] MEDS ORDERED: PROPOFOL IV EMULSION 10 MG/ML 20 ML VIAL IV ONE (13:46)
--- NOTE | 2016-11-17 14:12 | GI REPORT ---
Procedure Date: 11/17/2016 1:09 PM Procedure: Colonoscopy Indications: Diarrhea Medicines: Monitored Anesthesia Care Complications: No immediate complications. Estimated Blood Loss: Estimated blood loss: none. Procedure: Pre-Anesthesia Assessment: - Prior to the procedure, a History and Physical was performed, and patient medications and allergies were reviewed. The patient's tolerance of previous anesthesia was also reviewed. The risks and benefits of the procedure and the sedation options and risks were discussed with the patient. All questions were answered, and informed consent was obtained. Prior Anticoagulants: The patient has taken aspirin, last dose was 1 day prior to procedure. ASA Grade Assessment: II - A patient with mild systemic disease. After reviewing the risks and benefits, the patient was deemed in satisfactory condition to undergo the procedure. After I obtained informed consent, the scope was passed under direct vision. Throughout the procedure, the patient's blood pressure, pulse, and oxygen saturations were monitored continuously. The scope was introduced through the anus and advanced to the terminal ileum. The colonoscopy was performed without difficulty. The patient tolerated the procedure well. The quality of the bowel preparation was fair. The terminal ileum, ileocecal valve, appendiceal orifice, and rectum were photographed. Findings: The colon (entire examined portion) appeared normal. Biopsies for histology were taken with a cold forceps from the entire colon for evaluation of microscopic colitis. Non-bleeding internal hemorrhoids were found during retroflexion. The hemorrhoids were small. Impression: - The entire examined colon is normal. Biopsied. - Non-bleeding internal hemorrhoids. Recommendation: - [facility]. - Advance diet as tolerated. - Continue present medications. - Repeat colonoscopy for surveillance based on pathology results. Itz Canas DO 11/17/2016 2:12:04 PM This report has been signed electronically. Note Initiated On: 11/17/2016 1:09 PM I attest to the content of the Intraoperative Record and orders documented therein, exceptions below
--- NOTE | 2016-11-17 14:39 | Anesthesiology Progress Note ---
Anesthesia Post Op Note Date & Time Nov 17, 2016 at 14:39 Vital Signs Pain Intensity: 0 Vital Signs Past 12 Hours Date Time Temp Pulse Resp B/P (MAP) Pulse Ox O2 Delivery O2 Flow Rate FiO2 11/17/16 14:25 75 18 162/86 (111) 98 Room Air 11/17/16 14:10 80 18 148/87 (107) 98 Room Air 11/17/16 12:40 37.1 78 18 177/85 (115) 96 Room Air 11/17/16 11:32 36.7 71 20 181/80 (113) 94 Room Air 11/17/16 08:00 Room Air 11/17/16 07:20 36.7 74 20 172/83 (112) 94 Room Air 11/17/16 04:02 Room Air 11/17/16 04:00 36.6 74 20 165/80 (108) 94 Room Air Notes Mental Status: alert / awake / arousable, participated in evaluation Pt Amnestic to Procedure: Yes Nausea / Vomiting: adequately controlled Pain: adequately controlled Airway Patency, RR, SpO2: stable & adequate BP & HR: stable & adequate Hydration State: stable & adequate Anesthetic Complications: no major complications apparent
[2016-11-17 15:22] VITALS: BP 152/78; PULSE 84; TEMP 37; O2SAT 94
[2016-11-17] MEDS: SERTRALINE HCL 100 MG TAB PO SCH (15:47)
[2016-11-17] MEDS: MULTIVITAMIN TAB PO SCH (15:48)
[2016-11-17] MEDS: ASPIRIN 81 MG ECTAB PO SCH (15:48)
[2016-11-17] MEDS: ENOXAPARIN 40 MG/0.4 ML SYR SC SCH (17:31)
[2016-11-17 19:26] VITALS: BP 184/94; PULSE 59; TEMP 37.1; O2SAT 97
[2016-11-17] MEDS: ACETAMINOPHEN 325 MG TAB PO PRN (20:10)
[2016-11-17] MEDS: SIMVASTATIN 20 MG TAB PO SCH (20:11)
[2016-11-18 00:27] VITALS: BP 149/81; PULSE 73; TEMP 36.4; O2SAT 93
[2016-11-18] MEDS: CODEINE SULFATE 30 MG TAB PO PRN (02:29)
[2016-11-18 04:00] VITALS: BP 150/69; PULSE 68; TEMP 36.8; O2SAT 92
[2016-11-18] MEDS: ACETAMINOPHEN 325 MG TAB PO PRN (06:07)
[2016-11-18] MEDS: NSS + 20MEQ KCL 1000ML 1,000 ML IV SCH (06:10)
[2016-11-18 07:58] VITALS: BP 149/79; PULSE 67; TEMP 36.8; O2SAT 93
[2016-11-18] MEDS: LOSARTAN POTASSIUM 50 MG TAB PO SCH (08:27)
[2016-11-18] MEDS: DICYCLOMINE HCL 20 MG TAB PO SCH (08:27)
[2016-11-18] MEDS: FAMOTIDINE 20 MG TAB PO SCH (08:27)
[2016-11-18] MEDS: INSULIN ASPART 100 UNITS/ML 3 ML PEN SC SCH ×3 (08:31→17:48)
[2016-11-18] MEDS: SERTRALINE HCL 100 MG TAB PO SCH (08:37)
[2016-11-18] MEDS: MULTIVITAMIN TAB PO SCH (08:37)
[2016-11-18] MEDS: ASPIRIN 81 MG ECTAB PO SCH (08:37)
[2016-11-18 10:33] LABS: BUN/CREATININE RATIO 6.9 (10-20); CALCIUM 8.7 mg/dl (8.5-10.1); CREATININE 0.55 mg/dl (0.60-1.20); MAGNESIUM 1.9 mg/dl (1.8-2.4); POTASSIUM 3.6 mmol/L (3.5-5.1)
[2016-11-18] MEDS ORDERED: LOPERAMIDE HCL 2 MG CAP PO PRN (10:45)
[2016-11-18 11:48] VITALS: BP 159/83; PULSE 74; TEMP 36.8; O2SAT 94
--- NOTE | 2016-11-18 14:55 | Discharge Instructions ---
Discharge Instructions Date of Service Nov 18, 2016. Admission Reason for Admission: Diarrhea,Dehydration,Chest Pressure Discharge Discharge Diagnosis / Problem: persistent diarrhea Discharge Goals Goal(s): Decrease discomfort, Improve function, Improve disease control Activity Recommendations Activity Limitations: resume your previous activity . Current Hospital Diet Patient's current hospital diet: Diabetes Type 2 Diet Discharge Diet Recommended Diet: Low Fiber Diet (for the next week) Procedures Procedures Performed: Abd/pelvis CT CXR Colonoscopy Pending Studies Studies pending at discharge: yes List of pending studies: Biopsies taken during colonoscopy Celiac panel Laboratory Results Hemoglobin A1c Test 11/15/16 07:05 Range/Units Estimated Average Glucose 186 mg/dl Hemoglobin A1c 8.1 H 4.5-5.6 % Lipid Panel Test 11/15/16 07:05 Range/Units Triglycerides Level 151 H 0-150 mg/dl Cholesterol Level 98 0-200 mg/dl HDL Cholesterol 32 mg/dl Cholesterol/HDL Ratio 3.1 LDL Cholesterol, Calculated 36 mg/dl Medical Emergencies . Who to Call and When: Medical Emergencies: If at any time you feel your situation is an emergency, please call 911 immediately. . Non-Emergent Contact Non-Emergency issues call your: Primary Care Provider Call Non-Emergent contact if: you have any medication questions . Past History Medical & Surgical History: (1) Diarrhea, dehydration, chest pressure (2) Dehydration (3) Diabetes . "Provider Documentation" section prepared by Radha Zaldivar. Attending Attestation: Pt seen/examined and discharge care plan d/w FAUSTO Zaldivar. I agree with her discharge instructions as outlined. Robert Mcmullen MD VTE Core Measure Inpt VTE Proph given/why not?: Enoxaparin (Lovenox)SQ, T.E.D. Stockings, SCD's
--- NOTE | 2016-11-18 15:05 | Discharge Summary ---
Discharge Summary Date of Service Nov 18, 2016. (Radha Zaldivar CRNP) Discharge Summary Admission Date: Nov 14, 2016 at 13:27 Discharge Date: Nov 18, 2016 Discharge Disposition: Home Principal Diagnosis: persistent diarrhea Immunizations: Have You Had Influenza Vaccine: No History of Tetanus Vaccine?: Unknown History of Pneumococcal: YES, 2 YRS AGO. History of Hepatitis B Vaccine: No Procedures: Colonoscopy: The entire examined colon is normal. Biopsied. Non-bleeding internal hemorrhoids. Abd/pelvis CT IMPRESSION: 1. Findings compatible with acute uncomplicated pancolitis, likely infectious or inflammatory in nature. 2. Fatty infiltration of the liver. 3. Prior hysterectomy. CXR IMPRESSION: No acute cardiopulmonary process. (Radha Zaldivar CRNP) Problems/Secondary Diagnoses: 1. T2DM 2. IBS 3. asthma 4. HTN 5. morbid obesity - BMI 48 6. hyperlipidemia (Robert Mcmullen MD) Medication Reconciliation Continued Medications: Albuterol Hfa (Ventolin Hfa) 200 Puffs/68805 Mcg Aers 2-4 PUFFS INH Q6H PRN for Wheezing, #1 INHALER Aspirin (Aspirin Ec) 81 Mg Tab 81 MG PO DAILY Cranberry (Vaccinium Macrocarp (Cranberry) 125 Mg Tab 125 MG PO DAILY Dicyclomine Hcl (Bentyl) 20 Mg Tab 20 MG PO BID, TAB Famotidine (Pepcid) 20 Mg Tab 20 MG PO BID for 14 Days, #28 TAB Losartan Potassium (Cozaar) 50 Mg Tab 50 MG PO DAILY, TAB Metformin Hcl (Glucophage) 500 Mg Tab 500 MG PO BID, TAB Multivitamin (Multivitamin) Tab 1 TAB PO DAILY Sertraline (Zoloft) 100 Mg Tab 100 MG PO DAILY, TAB Simvastatin (Zocor) 20 Mg Tab 20 MG PO QPM, TAB Discharge Exam Review of Systems: Constitutional: No fever, No chills Respiratory: No shortness of breath Cardiovascular: No chest pain Abdomen: + diarrhea, No pain, No nausea, No vomiting Genitourinary - Female: No dysuria Physical Exam: General Appearance: WD/WN, no apparent distress Respiratory/Chest: chest non-tender, lungs clear, normal breath sounds, no respiratory distress, no accessory muscle use Cardiovascular: regular rate, rhythm, no edema, no murmur, normal peripheral pulses Abdomen / GI: normal bowel sounds, soft, + tenderness (Radha Zaldivar ., FAUSTO) Hospital Course This is a 55 y oF with PMhx of asthma, HTN, HLD, diabetes type 2, irritable bowel disease, who presented after 10 days of ongoing diarrhea nausea and vomiting. The patient reported that on the morning of admission, at 0600 she called a friend reporting she was in distress with weakness, lightheadedness and dizziness which she thought was from dehydration. Abdominal pain Dehydration Nausea and vomiting History of irritable bowel syndrome - IVF with NSS + KCl at 125m/hr - GI consulted- colonoscopy 11/17 - showed grossly normal colon, biopsies taken - Antiemetics with Zofran, pain control with tylenol and toradol if needed. - C.diff and stool cultures negative - Continue on Bentyl and famotidine - Checking celiacs panel Diabetes mellitus type 2 - ISS with Accu-Cheks achs - We'll hold metformin for now - A1c 8.1 Asthma - Patient uses her rescue albuterol inhaler at home - Duonebs available q4h prn - CXR reviewed and negative Hypertension - Blood pressure has improved since being in the ER, continue losartan 50 mg daily. - IV hydralazine when necessary - Troponins x 3 negative Hyperlipidemia - Check lipids, continue simvastatin 20Qpm Morbid obesity - BMI equals 41.6, diet and exercise was encouraged at bedside - consult dietitian CODE STATUS full code DVT ppx: Teds, SCDs, Lovenox 40 subcutaneous Total Time Spent: Less than 30 minutes This includes examination of the patient, discharge planning, medication reconciliation, and communication with other providers. (Radha Zaldivar ., FAUSTO) Attending Attestation: Pt seen/examined, chart reviewed, discharge care plan d/w FAUSTO Zaldivar. I agree w/ the decker components of her discharge summary. 55yo female with h/o irritable bowel, diarrhea predominant type, who presented with abdominal pain, nausea, emesis, and diarrhea. CT abd/pelvis with suggestion of mild pancolitis. C. diff toxin and stool cx remained negative while hospitalized. Underwent GI consultation with Dr. Itz Canas who performed colonoscopy. Colonoscopy was entirely normal with no features to suggest pseudomembranous colitis, IBD, etc. Random colon bx's were taken and were pending at time of discharge. Post-colonoscopy she was resumed on a diet, was advanced, and she tolerated this w/o difficulty prior to discharge. Her diarrhea improved while hospitalized. The exact etiology of her diarrhea/colitis was uncertain at discharge but hopefully was a transient infectious process. Discharge exam: gen - nad, obese mouth - MMM heart - RRR lungs - CTA b/l abd - soft, NT, ND, BS+, no HSM ext - no edema She will f/u on 11/19/16 with her PCP and will also need GI follow-up with Dr. Canas in 1-2 weeks. Robert Mcmullen MD (Robert Mcmullen MD) Discharge Instructions Please refer to the electronic Patient Visit Report (Discharge Instructions) for additional information. (Radha Zaldivar CRNP) Follow-Up Luz Evans on , November 19, 2016 at 11:10am. (Robert Mcmullen MD) Additional Copies To Itz Canas D.O.; Luz Evans.
[2016-11-18 15:16] VITALS: BP 146/72; PULSE 70; TEMP 37; O2SAT 93
[2016-11-18 17:14] VITALS: BP 146/72; PULSE 70; TEMP 37; O2SAT 93
[2016-11-18 17:33] LABS: IGA SERUM 407 mg/dL (81-463); TIS TRANS IGA 2 U/mL (<4)
== END 2016-11-18 18:17 | disposition home or self-care (01) | DRG 386 ==
LOC: EDBD 09:06 → C.EDA 09:07 → C.MED 13:27 → ENRESERV 13:33
PROVIDERS: ADMIT Family Medicine; ATTEND Internal Medicine
PROC: 0DJD8ZZ Inspection of Lower Intestinal Tract, Via Natural or Artificial Opening Endoscopic (ICD-10-PCS; principal; 2016-11-17 12:34)
DX: K51.00 Ulcerative (chronic) pancolitis without complications (principal); Z68.41 Body mass index [BMI] 40.0-44.9, adult; E66.01 Morbid (severe) obesity due to excess calories; J45.909 Unspecified asthma, uncomplicated; E11.9 Type 2 diabetes mellitus without complications; E86.0 Dehydration; E78.5 Hyperlipidemia, unspecified; I10 Essential (primary) hypertension; Z90.710 Acquired absence of both cervix and uterus; Z79.82 Long term (current) use of aspirin; Z83.3 Family history of diabetes mellitus; Z82.49 Family history of ischemic heart disease and other diseases of the circulatory system

== ENCOUNTER → 2017-01-26 | Day surgery (SDC) | payer BC ==
[2017-01-19 07:50] VITALS: Ht 162.6 cm; Wt 118.2 kg
[~2017-01-26] VITALS: Ht 162.6 cm; Wt 118.2 kg
[~2017-01-26] MED LIST changes: -FAMO20TA9 PO; +LIDOCAINE HCL 2% 2 ML VIAL (20MG/ML) ONE; +PROPOFOL IV EMULSION 10 MG/ML 20 ML VIAL IV ONE
--- NOTE | 2017-01-26 08:35 | Endo History and Physical ---
History & Physical Date of Service: Jan 26, 2017. Chief Complaint: nonspecific colitis,persistent diarrhea Referring Physician: Luz LAMBERT History of Present Illness 56 yo CF who presents for colonoscopy secondary to diarrhea. Past Medical History Diabetes, Arthritis, Asthma, Depression Past Surgical History Hx Cardiac Surgery: No Hx Internal Defibrillator: No Hx Pacemaker: No Hx Abdominal Surgery: Yes (CARL[facility] BSO) Hx of Implantable Prosthesis: No Hx Post-Op Nausea and Vomiting: Yes (REQUESTS PRE-MEDICATED) Hx Cancer Surgery: No Hx Thoracic Surgery: No Hx Orthopedic: No Hx Urinary Tract Surgery: No Family History IBD Social History Smoking Status: Never Smoker Hx Substance Use: No Hx Alcohol Use: Yes (OCCASIONALLY) Allergies Coded Allergies: Morphine (Unverified Allergy, Unknown, NAUSEA, 01/19/17) Uncoded Allergies: ANESTHESIA (Adverse Reaction, Severe, GI SYMPTOMS, 08/23/15) Current Medications Reported Home Medications Medications Dose Route/Sig Max Daily Dose Days Date Category Cranberry (Cranberry (Vaccinium Macrocarp) 125 Mg Tab 125 Mg PO QAM 11/09/16 Reported Ventolin Hfa (Albuterol) 200 Puffs/29411 Mcg Aers 2-4 Puffs INH Q6H PRN 11/09/16 Reported Bentyl (Dicyclomine Hcl) 20 Mg Tab 20 Mg PO BID 08/23/15 Reported Zocor (Simvastatin) 20 Mg Tab 20 Mg PO QPM 01/10/15 Reported Zoloft (Sertraline HCl) 100 Mg Tab 100 Mg PO QPM 01/10/15 Reported Glucophage (Metformin Hcl) 500 Mg Tab 500 Mg PO BID 01/10/15 Reported Cozaar (Losartan Potassium) 50 Mg Tab 50 Mg PO HS 01/10/15 Reported Aspirin Ec (Aspirin) 81 Mg Tab 81 Mg PO QAM 01/10/15 Reported Multivitamin (Multivitamins) Tab 1 Tab PO QAM 11/15/08 Reported Vital Signs Weight (Kilograms): 118.18 Height (Feet): 5 Height (Inches): 4 Date Time Temp Pulse Resp B/P (MAP) Pulse Ox O2 Delivery O2 Flow Rate FiO2 01/26/17 08:29 36.9 99 18 184/94 (124) 95 Room Air Physical Exam General Appearance: WD/WN, no apparent distress Respiratory/Chest: Auscultation: breath sounds normal Cardiovascular: Heart Auscultation: RRR Abdomen: Bowel Sounds: normal Inspection & Palpation: soft, non-distended, no tenderness, guarding & rebound Assessment and Plan Assessment: 56 yo CF who presents for colonoscopy secondary to diarrhea. Plan: Proceed with colonoscopy.
--- NOTE | 2017-01-26 09:44 | GI REPORT ---
Procedure Date: 01/26/2017 8:47 AM Procedure: Colonoscopy Indications: Chronic diarrhea Medicines: Monitored Anesthesia Care Complications: No immediate complications. Estimated Blood Loss: Estimated blood loss: none. Procedure: Pre-Anesthesia Assessment: - Prior to the procedure, a History and Physical was performed, and patient medications and allergies were reviewed. The patient's tolerance of previous anesthesia was also reviewed. The risks and benefits of the procedure and the sedation options and risks were discussed with the patient. All questions were answered, and informed consent was obtained. Prior Anticoagulants: The patient has taken aspirin, last dose was 1 day prior to procedure. ASA Grade Assessment: III - A patient with severe systemic disease. After reviewing the risks and benefits, the patient was deemed in satisfactory condition to undergo the procedure. After I obtained informed consent, the scope was passed under direct vision. Throughout the procedure, the patient's blood pressure, pulse, and oxygen saturations were monitored continuously. The Scope was introduced through the anus and advanced to the terminal ileum. The colonoscopy was performed without difficulty. The patient tolerated the procedure well. The quality of the bowel preparation was good. The terminal ileum, ileocecal valve, appendiceal orifice, and rectum were photographed. Findings: The perianal and digital rectal examinations were normal. The colon (entire examined portion) appeared normal. Several random biopsies were obtained with cold forceps for histology in the entire colon. Fluid aspiration for stool studies was performed. Impression: - The entire examined colon is normal. Fluid aspiration performed. - Several random biopsies were obtained in the entire colon. Recommendation: - Resume previous diet. - Continue present medications. - Repeat colonoscopy for surveillance based on pathology results. - Return to primary care physician as previously scheduled. Itz Canas, 01/26/2017 9:43:58 AM This report has been signed electronically. Note Initiated On: 01/26/2017 8:47 AM I attest to the content of the Intraoperative Record and orders documented therein, exceptions below
--- NOTE | 2017-01-26 09:46 | Discharge Instructions ---
Endoscopy Patient Instructions Date / Procedure(s) Performed Jan 26, 2017. Colonoscopy Allergy Information Coded Allergies: Morphine (Unverified Allergy, Unknown, NAUSEA, 01/19/17) Uncoded Allergies: ANESTHESIA (Adverse Reaction, Severe, GI SYMPTOMS, 08/23/15) Discharge Date / Findings Jan 26, 2017. Random colon biopsies Stool studies collected Medication Instructions Stopped Medication(s): last Metformin Wednesday,took ASA yesterday OK to resume all medications today as prescribed Reported Home Medications Medications Dose Route/Sig Max Daily Dose Days Date Category Cranberry (Cranberry (Vaccinium Macrocarp) 125 Mg Tab 125 Mg PO QAM 11/09/16 Reported Ventolin Hfa (Albuterol) 200 Puffs/33184 Mcg Aers 2-4 Puffs INH Q6H PRN 11/09/16 Reported Bentyl (Dicyclomine Hcl) 20 Mg Tab 20 Mg PO BID 08/23/15 Reported Zocor (Simvastatin) 20 Mg Tab 20 Mg PO QPM 01/10/15 Reported Zoloft (Sertraline HCl) 100 Mg Tab 100 Mg PO QPM 01/10/15 Reported Glucophage (Metformin Hcl) 500 Mg Tab 500 Mg PO BID 01/10/15 Reported Cozaar (Losartan Potassium) 50 Mg Tab 50 Mg PO HS 01/10/15 Reported Aspirin Ec (Aspirin) 81 Mg Tab 81 Mg PO QAM 01/10/15 Reported Multivitamin (Multivitamins) Tab 1 Tab PO QAM 11/15/08 Reported Provider Instructions Activity Restrictions - No exercising or heavy lifting for 24 hours. - Do not drink alcohol the day of the procedure. - Do not drive a car or operate machinery until the day after the procedure. - Do not make any important decisions or sign important papers in 24 hours after the procedure. Following Day: - Return to full activity which may include returning to work/school. Diet Start your diet with liquids and light foods (jello, soup, juice, toast). Then eat your usual diet if not nauseated. Treatment For Common After Affects For mild abdominal pain, bloating, or excessive gas: - Rest - Eat lightly - Lie on right side Follow-Up Information Follow-up with Luz LAMBERT as scheduled Anesthesia Information What You Should Know You have had a procedure that required some medicine to reduce anxiety and discomfort. This treatment is called moderate sedation. After receiving the treatment, you may be sleepy, but you will be able to breathe on your own. The effects of the treatment may last for several hours. Follow these instructions along with Activity/Diet recommendations noted above: * Do NOT do anything where dizziness or clumsiness would be dangerous. * Rest quietly at home today, then you can be up and about tomorrow. * Have a responsible person stay with you the rest of today. * You may have had an I.V. today. If so, you may take the dressing off later today. Recommendations Call your doctor if: * Trouble breathing * Continuous vomiting for more than 24 hours * Temperature above 101 degrees * Severe abdominal pain or bloating * Pain not relieved by pain medicine ordered * There is increased drainage or redness from any incision * A large amount of rectal bleeding greater than 2-3 tablespoons. (If you had a polyp/s removed or have hemorrhoids, a small amount of blood - from the rectum is to be expected.) * You have any unanswered questions or concerns. IN THE EVENT OF A SERIOUS EMERGENCY, GO TO THE NEAREST EMERGENCY ROOM Your discharge instructions were prepared by provider Itz Canas. Patient Instructions Signature Page Karly Carbajal Patient (or Guardian) Signature/Date: I have read and understand the instructions given to me by my caregivers. Caregiver/RN/Doctor Signature/Date: The above-named patient and/or guardian has received patient instructions on this date. + Original Patient Signature Page (only) stays with chart. Please make copy for patient.
--- NOTE | 2017-01-26 09:55 | Anesthesiology Progress Note ---
Anesthesia Post Op Note Date & Time Jan 26, 2017 at 09:55 Vital Signs Pain Intensity: 0 Vital Signs Past 12 Hours Date Time Temp Pulse Resp B/P (MAP) Pulse Ox O2 Delivery O2 Flow Rate FiO2 01/26/17 09:50 84 18 138/81 (100) 96 Room Air 01/26/17 09:35 86 18 134/79 (97) 96 Room Air 01/26/17 08:29 36.9 99 18 184/94 (124) 95 Room Air Notes Mental Status: alert / awake / arousable, participated in evaluation Pt Amnestic to Procedure: Yes Nausea / Vomiting: adequately controlled Pain: adequately controlled Airway Patency, RR, SpO2: stable & adequate BP & HR: stable & adequate Hydration State: stable & adequate Anesthetic Complications: no major complications apparent
[2017-01-26 10:05] VITALS: BP 156/97; PULSE 90; O2SAT 97
== END | disposition home or self-care (01) ==
LOC: C.GI 08:07
PROVIDERS: ATTEND Internal Medicine
DX: K52.9 Noninfective gastroenteritis and colitis, unspecified (principal); E11.9 Type 2 diabetes mellitus without complications; J45.909 Unspecified asthma, uncomplicated; F32.9 Major depressive disorder, single episode, unspecified; M19.90 Unspecified osteoarthritis, unspecified site; Z83.79 Family history of other diseases of the digestive system; Z79.82 Long term (current) use of aspirin; Z79.84 Long term (current) use of oral hypoglycemic drugs; Z79.899 Other long term (current) drug therapy; I10 Essential (primary) hypertension; E78.5 Hyperlipidemia, unspecified; E66.9 Obesity, unspecified; Z68.42 Body mass index [BMI] 45.0-49.9, adult

== ENCOUNTER 2017-09-17 12:51 | Emergency (ER) | payer BC, OTHER ==
[~2017-09-17] VITALS: Ht 162.6 cm; Wt 119.7 kg
[~2017-09-17 12:51] MED LIST changes: -LIDOCAINE HCL 2% 2 ML VIAL (20MG/ML) ONE; -PROPOFOL IV EMULSION 10 MG/ML 20 ML VIAL IV ONE
[2017-09-17 12:53] VITALS: Ht 162.6 cm; Wt 119.7 kg
[2017-09-17] MEDS ORDERED: SODIUM CHLORIDE 0.9% 1000ML 1,000 ML IV STA ×2 (13:08→17:24)
[2017-09-17] MEDS ORDERED: ONDANSETRON INJ 2 MG/ML 2 ML VIAL IV STA (13:08)
--- NOTE | 2017-09-17 13:16 | EMERGENCY ROOM VISIT NOTE ---
ED Visit Note First contact with patient: 13:01 CHIEF COMPLAINT: Diarrhea and abdominal pain HISTORY OF PRESENTING ILLNESS: This is a 56-year-old female who presents to the emergency department with complaint of diarrhea for the past 2+ weeks. She states she initially started with soft stools that have now become liquid, she states she is having 3-6 episodes of diarrhea every day. She is also been having diffuse abdominal pain which she describes as a cramp and ache, worse right before moving her bowels or after eating, and feels relieved after having an episode of diarrhea, currently rates as 6/10. She has had associated nausea and sweats as well as a decreased appetite, she denies any vomiting. She does not know if she has had a fever because she does not have a thermometer at home. She reports similar symptoms about a year ago, states she was diagnosed with nonspecific colitis, and states that she followed up with gastroenterology but they never figured out what caused her symptoms. She denies any diagnosis of inflammatory bowel disease. She does have a history of IBS. She denies any recent sick contacts with similar symptoms. She denies any unusual food or drink that could explain food poisoning prior to her symptoms starting. She denies any recent antibiotic use Or history of C. difficile infection. REVIEW OF SYSTEMS: A complete 10 point review of systems was reviewed with the patient with pertinent positives and negatives as per history of present illness. All else were negative. PAST MEDICAL HISTORY: Reviewed in chart, see problem list below. SOCIAL HISTORY: Lives at home. She denies tobacco use. ALLERGIES: Reviewed in chart, see below PHYSICAL EXAM: CONSTITUTIONAL: Pleasant and cooperative. No acute distress. Moderately dehydrated. HEENT: Normocephalic, atraumatic. Pupils equal, round and reactive to light, EOMI. TMs normal. Pharynx normal. Dry mucous membranes. NECK: Supple, full active range of motion without discomfort. RESPIRATORY: Clear to auscultation bilaterally with no wheezing, crackles, rhonchi or stridor. Equal expansion bilaterally. CARDIOVASCULAR: Regular rate and rhythm with no murmurs, rubs or gallops. Normal peripheral perfusion. No edema. GASTROINTESTINAL: Diffuse abdominal tenderness throughout, most tender in the upper abdomen and right flank area. Soft and nondistended. Obese. No palpable masses or HSM. Bowel sounds present in all quadrants. No CVA tenderness bilaterally. MUSCULOSKELETAL: Full range of motion of all joints without discomfort. INTEGUMENTARY: No rash or other significant dermatologic conditions noted. NEUROLOGIC: Alert and oriented X 4 with normal affect. No focal neurologic deficits noted. Normal strength and sensation in all 4 extremities. Normal speech. Normal gait observed. ED COURSE AND MEDICAL DECISION MAKING: CC: Patient presenting with complaint of diarrhea and abdominal pain DIFFERENTIAL DIAGNOSIS: Includes, but not limited to gastroenteritis, food poisoning, gastritis, peptic ulcer disease, colitis, C. difficile infection, IBS , inflammatory bowel disease, diverticulitis, appendicitis, dehydration, among others. INTERPRETATION OF LABS: No leukocytosis, no anemia, normal platelets, hyperglycemia, no other significant electrolyte abnormalities, normal renal function, normal liver enzymes and lipase. Patient unable to provide urine sample. Stool studies pending. C. difficile is NEGATIVE. IMAGING: CT OF THE ABDOMEN AND PELVIS WITH CONTRAST CLINICAL HISTORY: Acute abdominal pain. Diarrhea. COMPARISON STUDY: CT of the abdomen and pelvis November 14, 2016. TECHNIQUE: Following IV administration of 115 mL of Optiray-320, axial images of the abdomen and pelvis were obtained from the lung bases to the proximal femurs. Images were reviewed in the axial, sagittal, and coronal planes. IV contrast was administered without complication. A dose lowering technique was utilized adhering to the principles of ALARA. Oral contrast was administered. CT DOSE: 1717.43 mGy.cm FINDINGS: Lung bases are clear. Mild cardiomegaly is noted. There is fatty infiltration of the liver. Mild splenomegaly is noted. The adrenal glands, kidneys and pancreas are normal. There is no peripancreatic or pericholecystic infiltration. No biliary or pancreatic ductal dilatation is present. There is no pneumatosis, free air or portal venous gas. The appendix is normal. No bowel wall thickening is noted. There is no evidence for a small bowel obstruction. No suspicious osseous lesions are present. There is no hydronephrosis or hydroureter. IMPRESSION: 1. No acute process within the abdomen or pelvis. 2. Fatty liver. MEDICATION RECONCILIATION: I attest that I have personally reviewed the patient 's current medication list. INITIAL VITAL SIGNS REVIEW: I reviewed the patient's initial vital signs and interpret them as follows: T: Afebrile; BP: Hypertensive; HR: Tachycardic; RR : Within normal limits; Pulse Ox: Within normal limits on room air. Blood pressure screening: The patient was found to have an elevated blood pressure, which was felt to be situational. SUMMARY: Patient was evaluated at bedside, history and physical exam performed. Patient is alert and oriented, in no acute distress, resting calmly in the stretcher. Patient does appear to be moderately dehydrated and is noted to be tachycardic, but is afebrile. There is diffuse abdominal tenderness throughout on exam, most tender in the upper abdomen and right flank area Orders were placed at bedside for labs, UA, stool studies and C. difficile assay , IV fluids for hydration, IV Zofran for nausea, CT abdomen/pelvis with oral and IV contrast to evaluate for colitis, IBD, diverticulitis, among others. Patient discussed with Dr. Piña, who agrees with my assessment and plan. Labs and imaging reviewed as above, unremarkable, no acute findings to explain patient's symptoms. Negative for C. difficile. Stool studies were sent and are pending. Patient reassessed multiple times throughout ED stay, she has remained stable, afebrile, tachycardia resolved and states she is feeling improved after IV fluids and medications. She was given loperamide to help manage her diarrhea. She is tolerating p.o. fluids without difficulty. Patient was updated on all results and plan for discharge, she was encouraged to follow closely with her PCP and asbestos cloth inspector. Patient was also given strict return precautions should her symptoms worsen, she verbalized understanding. Patient was discharged home in stable condition and ambulatory. Problem List Medical Problems: (1) Asthma Status: Chronic (2) Diabetes Status: Chronic (3) Hyperlipidemia Status: Chronic (4) Hypertension Status: Chronic (5) IBS (irritable bowel syndrome) Status: Chronic Surgical Problems: (1) History of hysterectomy Status: Resolved Current/Historical Medications Scheduled Aspirin (Aspirin Ec), 81 MG PO QAM Cranberry (Vaccinium Macrocarp (Cranberry), 125 MG PO QAM Dicyclomine HCl (Dicyclomine HCl), 20 MG PO DAILY Losartan Potassium (Cozaar), 50 MG PO HS Metformin Hcl (Glucophage), 500 MG PO BID Multivitamin (Multivitamin), 1 TAB PO QAM Probiotic Product (Probiotic), 1 CAP PO DAILY Sertraline (Zoloft), 100 MG PO QPM Simvastatin (Zocor), 20 MG PO QPM Scheduled PRN Albuterol Hfa (Ventolin Hfa), 2-4 PUFFS INH Q6H PRN for Wheezing Allergies Coded Allergies: Morphine (Unverified Allergy, Unknown, NAUSEA, 09/17/17) Uncoded Allergies: ANESTHESIA (Adverse Reaction, Severe, GI SYMPTOMS, 08/23/15) Vital Signs Date Time Temp Pulse Resp B/P (MAP) Pulse Ox O2 Delivery O2 Flow Rate FiO2 09/17/17 19:25 37.1 89 20 117/67 95 09/17/17 16:24 106 121/85 93 Room Air 09/17/17 14:43 100 111/66 93 Room Air 09/17/17 12:53 37.2 112 20 137/81 95 Room Air Laboratory Results 09/17/17 13:20 Red Blood Count 4.55, Mean Corpuscular Volume 86.6, Mean Corpuscular Hemoglobin 29.5, Mean Corpuscular Hemoglobin Concent 34.0, Mean Platelet Volume 10.8, Neutrophils (%) (Auto) 29.3, Lymphocytes (%) (Auto) 58.0, Monocytes (%) (Auto) 10.7, Eosinophils (%) (Auto) 0.8, Basophils (%) (Auto) 0.7, Neutrophils # (Auto ) 2.42, Lymphocytes # (Auto) 4.79, Monocytes # (Auto) 0.88, Eosinophils # (Auto ) 0.07, Basophils # (Auto) 0.06 09/17/17 13:20 Test 09/17/17 13:20 09/17/17 16:28 White Blood Count 8.26 K/uL (4.8-10.8) Red Blood Count 4.55 M/uL (4.2-5.4) Hemoglobin 13.4 g/dL (12.0-16.0) Hematocrit 39.4 % (37-47) Mean Corpuscular Volume 86.6 fL (80-100) Mean Corpuscular Hemoglobin 29.5 pg (25-34) Mean Corpuscular Hemoglobin Concent 34.0 g/dl (32-36) Platelet Count 177 K/uL (130-400) Mean Platelet Volume 10.8 fL (7.4-10.4) Neutrophils (%) (Auto) 29.3 % Lymphocytes (%) (Auto) 58.0 % Monocytes (%) (Auto) 10.7 % Eosinophils (%) (Auto) 0.8 % Basophils (%) (Auto) 0.7 % Neutrophils # (Auto) 2.42 K/uL (1.4-6.5) Lymphocytes # (Auto) 4.79 K/uL (1.2-3.4) Monocytes # (Auto) 0.88 K/uL (0.11-0.59) Eosinophils # (Auto) 0.07 K/uL (0-0.5) Basophils # (Auto) 0.06 K/uL (0-0.2) RDW Standard Deviation 43.0 fL (36.4-46.3) RDW Coefficient of Variation 13.7 % (11.5-14.5) Immature Granulocyte % (Auto) 0.5 % Immature Granulocyte # (Auto) 0.04 K/uL (0.00-0.02) Anion Gap 9.0 mmol/L (3-11) Est Creatinine Clear Calc Drug Dose 133.4 ml/min Estimated GFR () 118.1 Estimated GFR (Non- 101.9 BUN/Creatinine Ratio 15.6 (10-20) Calcium Level 9.0 mg/dl (8.5-10.1) Total Bilirubin 0.9 mg/dl (0.2-1) Direct Bilirubin 0.2 mg/dl (0-0.2) Aspartate Amino Transf (AST/SGOT) 61 U/L (15-37) Alanine Aminotransferase (ALT/SGPT) 65 U/L (12-78) Alkaline Phosphatase 78 U/L (45-117) Total Protein 7.0 gm/dl (6.4-8.2) Albumin 3.0 gm/dl (3.4-5.0) Lipase 133 U/L (73-393) Medications Administered Medications (Trade) Dose Ordered Sig/Christian Route Start Time Stop Time Status Last Admin Dose Admin Sodium Chloride 1,000 ml @ 999 mls/hr Q1H1M STAT IV 09/17/17 13:08 09/17/17 14:08 DC 09/17/17 13:27 999 MLS/HR Ondansetron HCl (Zofran Inj) 4 mg NOW STAT IV 09/17/17 13:08 09/17/17 13:12 DC 09/17/17 13:27 4 MG Sodium Chloride 1,000 ml @ 999 mls/hr Q1H1M STAT IV 09/17/17 17:24 09/17/17 18:24 DC 09/17/17 17:30 999 MLS/HR Loperamide HCl (Imodium Cap) 4 mg NOW STAT PO 09/17/17 18:14 09/17/17 18:16 DC 09/17/17 18:21 4 MG Departure Information Impression Primary Impression: Diarrhea Additional Impressions: Dehydration Generalized abdominal cramping Dispostion Home / Self-Care Condition GOOD Referrals Luz Evans (PCP) Case, Itz Collins D.O. Patient Instructions ED Dehydration, ED Diet Cades, ED Food Poison Or Gastroenteritis, [facility], [facility] Additional Instructions You have been evaluated and treated in the Emergency Department today for your abdominal pain and diarrhea. Laboratory results and imaging studies have ruled out any emergent causes for your symptoms which would warrant admission or surgery. Stool cultures have been sent to the lab, these will take 48-72 hours for results. You will be notified regarding any abnormal results. You may take Imodium 2 mg 1 tablet after every episode of diarrhea, until your symptoms are improving. This medication is available [id number]. Take as directed. For pain control, you can use the following [id number] medicines (if >12 yo): - Regular strength (325mg/tab) Tylenol (acetaminophen) 2 tabs every 6 hours as needed. Do not exceed 10 tablets in a 24 hour period. Avoid taking more than 3000 mg of Tylenol per day. This includes any other sources of acetaminophen you may take on a regular basis. - Regular strength (200 mg/tab) Advil (ibuprofen) 3 tabs every 6 hours as needed. Do not exceed a dose of 2400 mg per day. For best results, alternate between Tylenol and Advil every 3-4 hours. Drink plenty of fluids to stay well hydrated. Stick with a bland diet until your symptoms are improving. Please follow-up with your Primary Care Provider in the next few days. You should also make an appointment to follow-up with your asbestos cloth inspector for further evaluation of your abdominal pain and diarrhea. Return to the emergency department for severe worsening abdominal or back pain, worsening nausea/vomiting, vomiting blood, blood in your stool or urine, fevers > 101.5, severe dizziness or passing out, or any other concerns. Work Instructions Return To Work: 3 days Problem Qualifiers Primary Impression: Diarrhea Diarrhea type: unspecified type Qualified Codes: R19.7 - Diarrhea, unspecified
[2017-09-17] MEDS ORDERED: OPTIRAY 320 IV PRN (13:30)
[2017-09-17] MEDS ORDERED: MISCCAP80 PO (13:47)
[2017-09-17] MEDS ORDERED: BNT20 PO (13:47)
[2017-09-17 14:04] LABS: HEMATOCRIT 39.4 % (37-47); HEMOGLOBIN 13.4 g/dL (12.0-16.0); MEAN CELL VOLUME 86.6 fL (80-100); MEAN CORPUSCULAR HEMOGLOBIN 29.5 pg (25-34); MEAN PLATELET VOLUME 10.8 fL (7.4-10.4); PLATELET COUNT 177 K/uL (130-400); RED CELL DISTRIBUTION WIDTH CV 13.7 % (11.5-14.5); WHITE BLOOD COUNT 8.26 K/uL (4.8-10.8)
[2017-09-17 14:26] LABS: CREATININE 0.6 mg/dl (0.60-1.20); POTASSIUM 3.6 mmol/L (3.5-5.1)
[2017-09-17 14:44] LABS: BASO % 0.7 %; BASO ABS # 0.06 K/uL (0-0.2); EOS % 0.8 %; EOS ABS # 0.07 K/uL (0-0.5); IG# 0.04 K/uL (0.00-0.02); LYMPH ABS # 4.79 K/uL (1.2-3.4); MONO % 10.7 %; MONO ABS # 0.88 K/uL (0.11-0.59); NEUT % 29.3 %; NEUT ABS # 2.42 K/uL (1.4-6.5)
--- NOTE | 2017-09-17 16:29 | DIAGNOSTIC IMAGING REPORT ---
CT OF THE ABDOMEN AND PELVIS WITH CONTRAST CLINICAL HISTORY: Acute abdominal pain. Diarrhea. COMPARISON STUDY: CT of the abdomen and pelvis November 14, 2016. TECHNIQUE: Following IV administration of 115 mL of Optiray-320, axial images of the abdomen and pelvis were obtained from the lung bases to the proximal femurs. Images were reviewed in the axial, sagittal, and coronal planes. IV contrast was administered without complication. A dose lowering technique was utilized adhering to the principles of ALARA. Oral contrast was administered. CT DOSE: 1717.43 mGy.cm FINDINGS: Lung bases are clear. Mild cardiomegaly is noted. There is fatty infiltration of the liver. Mild splenomegaly is noted. The adrenal glands, kidneys and pancreas are normal. There is no peripancreatic or pericholecystic infiltration. No biliary or pancreatic ductal dilatation is present. There is no pneumatosis, free air or portal venous gas. The appendix is normal. No bowel wall thickening is noted. There is no evidence for a small bowel obstruction. No suspicious osseous lesions are present. There is no hydronephrosis or hydroureter. IMPRESSION: 1. No acute process within the abdomen or pelvis. 2. Fatty liver. Electronically signed by: Yang Soliman M.D. 09/17/2017 4:28 PM Dictated Date/Time: 09/17/2017 4:13 PM
[2017-09-17] MEDS ORDERED: LOPERAMIDE HCL 2 MG CAP PO STA (18:14)
[2017-09-17 19:25] VITALS: BP 117/67; PULSE 89; TEMP 37.1; O2SAT 95
== END 2017-09-17 19:27 | disposition home or self-care (01) ==
LOC: C.EDB 12:52 → C.EDC 19:27
DX: R19.7 Diarrhea, unspecified (principal); E86.0 Dehydration; R10.84 Generalized abdominal pain; J45.909 Unspecified asthma, uncomplicated; E11.9 Type 2 diabetes mellitus without complications; E78.5 Hyperlipidemia, unspecified; I10 Essential (primary) hypertension; K58.9 Irritable bowel syndrome, unspecified; Z88.5 Allergy status to narcotic agent

== ENCOUNTER 2017-09-19 16:08 | Emergency (ER) | payer OTHER ==
[~2017-09-19 16:08] MED LIST changes: +BNT20 PO; -DICY20TA35 PO; +MISCCAP80 PO
[2017-09-19 16:14] VITALS: TEMP 37.4; Ht 162.6 cm
[2017-09-19] MEDS ORDERED: SODIUM CHLORIDE 0.9% 1000ML 1,000 ML IV STA (16:27)
[2017-09-19] MEDS ORDERED: ONDANSETRON INJ 2 MG/ML 2 ML VIAL IV STA (16:27)
[2017-09-19] MEDS ORDERED: OPTIRAY 320 IV PRN (16:45)
[2017-09-19] MEDS ORDERED: KETOROLAC TROMETHAMINE 30 MG/ML VIAL IV STA (17:13)
--- NOTE | 2017-09-19 17:13 | EMERGENCY ROOM VISIT NOTE ---
ED Visit Note First contact with patient: 16:18 CHIEF COMPLAINT: Diarrhea, vomiting, lightheadedness, left flank pain HISTORY OF PRESENTING ILLNESS: This is a 56-year-old female with past medical history significant for hypertension, type II diabetes, asthma, depression/ anxiety, and IBS, who presents to the emergency department with complaint of diarrhea that has been ongoing for more than 2 weeks. She was evaluated in the emergency department 2 days ago for the same symptoms, she had negative workup and was discharged home feeling better. She had stool studies sent and pending at that time. She states yesterday she began to develop worsening nausea and has been vomiting, so she is unable to keep down even water now. She states that she was trying to eat a brat diet and use Imodium for the diarrhea, but this was not helping, she states she is still having 4-5 episodes of watery diarrhea per day, and has to go every time she eats something. She was initially complaining of diffuse abdominal cramping, but states that her pain is localized to the left side of her abdomen since yesterday. She reports subjective fevers and chills at home for the past few days, but does not have a thermometer. She has associated headaches, and states that she feels very dehydrated and just completely run down. She denies any chest pain, shortness of breath, cough, bloody or black stool or emesis, dysuria or urinary frequency , or unusual rash. History of total hysterectomy, denies any other abdominal surgeries. REVIEW OF SYSTEMS: A complete 10 point review of systems was reviewed with the patient with pertinent positives and negatives as per history of present illness. All else were negative. PAST MEDICAL HISTORY: Reviewed in chart, see problem list below. SOCIAL HISTORY: Lives at home. She denies tobacco use. ALLERGIES: Reviewed in chart, see below. PHYSICAL EXAM: CONSTITUTIONAL: Pleasant and cooperative. No acute distress. Moderately dehydrated. Generally ill-appearing, but nontoxic. Morbidly obese. HEENT: Normocephalic, atraumatic. Pupils equal, round and reactive to light, EOMI. TMs normal. Pharynx normal. Dry mucous membranes. NECK: Supple, full active range of motion without discomfort. No nuchal rigidity or meningismus. No cervical adenopathy bilaterally. RESPIRATORY: Diminished in the bases, but otherwise clear to auscultation bilaterally with no wheezing, crackles, rhonchi or stridor. Equal expansion bilaterally. CARDIOVASCULAR: Tachycardic. Regular rhythm with no murmurs, rubs or gallops. Normal peripheral perfusion. No edema. GASTROINTESTINAL: Soft, nontender, nondistended. No palpable masses or HSM. Bowel sounds present in all quadrants. MUSCULOSKELETAL: Full range of motion of all joints without discomfort. INTEGUMENTARY: No rash or other significant dermatologic conditions noted. NEUROLOGIC: Alert and oriented X 4 with normal affect. Cranial nerves II-XII grossly intact, no facial droop. No pronator drift. No focal neurologic deficits noted. Normal strength and sensation in all 4 extremities. Normal speech. Normal gait observed. Negative Romberg. ED COURSE AND MEDICAL DECISION MAKING: CC: Patient presenting with complaint of diarrhea, vomiting, lightheadedness, left flank pain DIFFERENTIAL DIAGNOSIS: Includes, but not limited to gastroenteritis, colitis, IBS, IBD, pancreatitis, cholecystitis, ureteral stone, diverticulitis, UTI, pyelonephritis, dehydration, electrolyte abnormality, DKA, among others. INTERPRETATION OF LABS: No leukocytosis, no anemia, normal platelets, no significant electrolyte abnormalities, normal renal function, normal liver enzymes and lipase. Lactic acid within normal limits. UA appears consistent with gross contamination, urine culture pending. IMAGING: CHEST ONE VIEW PORTABLE CLINICAL HISTORY: Hypoxia. COMPARISON STUDY: Chest radiograph November 14, 2016. FINDINGS: Lung volumes are at the lower limits of normal. Apparent hazy left basilar opacity is likely due to overlying soft tissues. No pneumothorax or pleural effusion is noted. There is no evidence for without overt pulmonary edema. IMPRESSION: No acute cardiopulmonary findings. ----- CT OF THE ABDOMEN AND PELVIS WITH CONTRAST CLINICAL HISTORY: Persistent diarrhea and vomiting. Flank pain. COMPARISON STUDY: CT of the abdomen and pelvis November 14, [address] of the abdomen and pelvis September 17, 2017. TECHNIQUE: Following IV administration of 116 mL of Optiray-320, axial images of the abdomen and pelvis were obtained from the lung bases to the proximal femurs. Images were reviewed in the axial, sagittal, and coronal planes. IV contrast was administered without complication. A dose lowering technique was utilized adhering to the principles of ALARA. CT DOSE: 1604.20 mGy.cm FINDINGS: Fatty infiltration of the liver is noted. Spleen is mildly enlarged. Adrenal glands, kidneys and pancreas are normal. There is no biliary or pancreatic ductal dilatation. There is no peripancreatic or pericholecystic infiltration. No pneumatosis, free air or portal venous gas is present. Mild splenomegaly is noted. The appendix is normal. There is oral contrast within the colon from prior contrast enhanced CT. Apparent colonic wall thickening is likely due to underdistention. There is no definite bowel wall thickening. Fat-containing lower ventral hernias unchanged. There is trace fluid within the pelvis. No lymphadenopathy is present. There is no hydronephrosis. IMPRESSION: 1. No bowel obstruction. Normal appendix. 2. Apparent mild transverse colon wall thickening which is likely due to underdistention. A nonspecific colitis could appear similar although is considered less likely. 3. Mild splenomegaly. 4. Fatty liver. 5. Trace fluid within the pelvis. MEDICATION RECONCILIATION: I attest that I have personally reviewed the patient 's current medication list. INITIAL VITAL SIGNS REVIEW: I reviewed the patient's initial vital signs and interpret them as follows: T: Afebrile; BP: Hypertensive; HR: Tachycardic; RR : Mildly tachypneic; Pulse Ox: Within normal limits on room air. Blood pressure screening: The patient was found to have an elevated blood pressure, which was felt to be situational. SUMMARY: Patient was evaluated at bedside, history and physical exam performed. Patient is alert and oriented, in no acute distress, but does appear uncomfortable, resting calmly in stretcher. Patient appears moderately dehydrated and is noted to be slightly tachycardic, but is afebrile. Patient is acutely tender in the left flank and lower abdomen to palpation. Generalized discomfort throughout the abdomen, no rebound tenderness or guarding. Review of the patient's chart, noting negative C. difficile and stool cultures so far appear to be negative. Stool O&P is still pending. Orders were placed at bedside for labs, UA, IV fluids for hydration, IV Zofran for nausea, IV Toradol for pain, CT abdomen/pelvis with IV to evaluate for left flank and abdominal pain. Patient discussed with Dr. Goodman, who agrees with my assessment and plan. Nursing staff notified me that the patient became hypoxic to 88% on room air while sleeping, she did place her on 2 L nasal cannula oxygen. I did reassess the patient upon being notified, the patient is not in any respiratory distress, and is currently 98% on 2 L oxygen. Chest x-ray ordered for further evaluation. Labs and imaging reviewed as above, no significant abnormalities. Possible mild colitis on CT, but may also be due to under distention. Chest x-ray is clear Patient placed back on room air and has been maintaining her sats 97-99% without any respiratory distress. Patient reassessed multiple times throughout ED stay, she has remained stable, tachycardia resolved after IV fluids, she is feeling somewhat improved after IV fluids and Toradol. She states her nausea is coming back and she is worried that the Zofran she is at home will not manage her symptoms. She was given a dose of IV Phenergan, and has tolerated PO fluids well without any nausea or vomiting and states she feels much better. I did speak on the phone with Dr. Hernandes, gastroenterology, regarding the patient. He recommended prescribing her Lomotil for the diarrhea and will arrange for her to have follow-up appointment with Dr. Canas this week. Patient was given a dose of Lomotil in the ED. Prescriptions for Phenergan and Lomotil were sent to the pharmacy, patient was given a take-home pack of Phenergan as well. She was educated regarding these medications. Patient was updated on all results and plan for discharge, she was encouraged to follow closely with her PCP as well as with the [employer] worker. Patient was also given strict return precautions should her symptoms worsen, she verbalized understanding. Patient was discharged home in stable condition and ambulatory. (Radha Hayward CRNP) First contact with patient: 16:18 (Zeyad Goodman M.D.) Problem List Medical Problems: (1) Asthma Status: Chronic (2) Diabetes Status: Chronic (3) Hyperlipidemia Status: Chronic (4) Hypertension Status: Chronic (5) IBS (irritable bowel syndrome) Status: Chronic Surgical Problems: (1) History of hysterectomy Status: Resolved (Zeyad Goodman M.D.) Current/Historical Medications Scheduled Aspirin (Aspirin Ec), 81 MG PO QAM Cranberry (Vaccinium Macrocarp (Cranberry), 125 MG PO QAM Dicyclomine HCl (Dicyclomine HCl), 20 MG PO BID Diphenoxylate/Atropine (Lomotil), 2 TAB PO Q6H Losartan Potassium (Cozaar), 50 MG PO HS Metformin Hcl (Glucophage), 500 MG PO BID Multivitamin (Multivitamin), 1 TAB PO QAM Probiotic Product (Probiotic), 1 CAP PO DAILY Sertraline (Zoloft), 100 MG PO QPM Simvastatin (Zocor), 20 MG PO QPM Scheduled PRN Albuterol Hfa (Ventolin Hfa), 2-4 PUFFS INH Q6H PRN for Wheezing Promethazine Hcl (Phenergan), 25 MG PO Q4H PRN for Nausea Allergies Coded Allergies: Morphine (Unverified Allergy, Unknown, NAUSEA, 09/19/17) Uncoded Allergies: ANESTHESIA (Adverse Reaction, Severe, GI SYMPTOMS, 08/23/15) Vital Signs Date Time Temp Pulse Resp B/P (MAP) Pulse Ox O2 Delivery O2 Flow Rate FiO2 09/19/17 20:53 89 16 118/65 100 Nasal Cannula 4.0 09/19/17 19:50 89 16 153/82 98 Room Air 09/19/17 18:45 88 20 129/75 99 Room Air 09/19/17 17:50 92 09/19/17 17:39 96 Nasal Cannula 2.0 09/19/17 17:37 90 20 125/82 95 Nasal Cannula 2.0 09/19/17 17:37 88 Room Air 09/19/17 16:14 37.4 102 22 165/68 91 Room Air (Zeyad Goodman M.D.) Laboratory Results 09/19/17 17:20 Red Blood Count 4.34, Mean Corpuscular Volume 88.7, Mean Corpuscular Hemoglobin 29.3, Mean Corpuscular Hemoglobin Concent 33.0, Mean Platelet Volume 9.9 09/19/17 17:20 Test 09/19/17 17:15 09/19/17 17:20 Urine Color DK YELLOW Urine Appearance CLOUDY (CLEAR) Urine pH 5.0 (4.5-7.5) Urine Specific [place] 1.026 (1.000-1.030) Urine Protein 1+ (NEG) Urine Glucose (UA) NEG (NEG) Urine Ketones TRACE (NEG) Urine Occult Blood NEG (NEG) Urine Nitrite NEG (NEG) Urine Bilirubin NEG (NEG) Urine Urobilinogen NEG (NEG) Urine Leukocyte Esterase TRACE (NEG) Urine WBC (Auto) 10-30 /hpf (0-5) Urine RBC (Auto) 0-4 /hpf (0-4) Urine Hyaline Casts (Auto) 0 /lpf (0-5) Urine Epithelial Cells (Auto) >30 /lpf (0-5) Urine Bacteria (Auto) 4+ (NEG) Urine Crystals AMORPHOUS SEDIMENT (NONE Urine Pathogenic Casts /lpf (0) White Blood Count 9.42 K/uL (4.8-10.8) Red Blood Count 4.34 M/uL (4.2-5.4) Hemoglobin 12.7 g/dL (12.0-16.0) Hematocrit 38.5 % (37-47) Mean Corpuscular Volume 88.7 fL (80-100) Mean Corpuscular Hemoglobin 29.3 pg (25-34) Mean Corpuscular Hemoglobin Concent 33.0 g/dl (32-36) Platelet Count 192 K/uL (130-400) Mean Platelet Volume 9.9 fL (7.4-10.4) RDW Standard Deviation 45.2 fL (36.4-46.3) RDW Coefficient of Variation 14.0 % (11.5-14.5) Neutrophils % (Manual) 55.1 % Lymphocytes % (Manual) 14.7 % Variant Lymphocytes % (manual) 19.0 % Monocytes % (Manual) 8.6 % Eosinophils % (Manual) 0.9 % Basophils % (Manual) 1.7 % Neutrophils # (Manual) 5.19 K/uL (1.4-6.5) Total Absolute Neutrophils 5.19 K/uL (1.4-6.5) Lymphocytes # (Manual) 1.38 K/uL (1.2-3.4) Absolute Variant Lymphocytes 1.79 K/uL Total Absolute Lymphocytes 3.17 K/uL (1.2-3.4) Monocytes # (Manual) 0.81 K/uL (0.11-0.59) Eosinophils # (Manual) 0.08 K/uL (0-0.5) Basophils # (Manual) 0.16 K/uL (0-0.2) Anion Gap 8.0 mmol/L (3-11) Estimated GFR () 114.5 Estimated GFR (Non- 98.8 BUN/Creatinine Ratio 9.5 (10-20) Lactic Acid Level 1.1 mmol/L (0.4-2.0) Calcium Level 8.2 mg/dl (8.5-10.1) Total Bilirubin 0.9 mg/dl (0.2-1) Direct Bilirubin 0.2 mg/dl (0-0.2) Aspartate Amino Transf (AST/SGOT) 29 U/L (15-37) Alanine Aminotransferase (ALT/SGPT) 44 U/L (12-78) Alkaline Phosphatase 71 U/L (45-117) Total Protein 6.6 gm/dl (6.4-8.2) Albumin 2.9 gm/dl (3.4-5.0) Lipase 70 U/L (73-393) (Zeyad Goodman M.D.) Medications Administered Medications (Trade) Dose Ordered Sig/Christian Route Start Time Stop Time Status Last Admin Dose Admin Sodium Chloride 1,000 ml @ 999 mls/hr Q1H1M STAT IV 09/19/17 16:27 09/19/17 17:27 DC 09/19/17 17:21 999 MLS/HR Ondansetron HCl (Zofran Inj) 4 mg NOW STAT IV 09/19/17 16:27 09/19/17 16:33 DC 09/19/17 17:22 4 MG Ketorolac Tromethamine (Toradol Inj) 15 mg NOW STAT IV 09/19/17 17:13 09/19/17 17:14 DC 09/19/17 17:24 15 MG Promethazine HCl 25 mg/Sodium Chloride 51 ml @ 204 mls/hr NOW STAT IV 09/19/17 19:58 09/19/17 20:12 DC 09/19/17 20:12 204 MLS/HR Diphenoxylate HCl/ Atropine (Lomotil Tab) 2 tab NOW ONCE PO 09/19/17 20:15 09/19/17 20:16 DC 09/19/17 20:21 2 TAB Promethazine HCl (Phenergan 25MG Home Pack) 1 homepack UD ONCE PO 09/19/17 20:15 09/19/17 20:16 DC 09/19/17 20:21 1 HOMEPACK (Zeyad Goodman M.D.) Departure Information Impression Primary Impression: Nausea and vomiting Additional Impression: Diarrhea Dispostion Home / Self-Care Condition GOOD Prescriptions Promethazine Hcl (Phenergan) 25 Mg Tab 25 MG PO Q4H Y for Nausea for 4 Days, #16 TAB Prov: Radha Hayward, W[employer] PROCESSING OPERATOR 09/19/17 Diphenoxylate/Atropine (Lomotil) Tab 2 TAB PO Q6H for Diarrhea for 5 Days, #40 TAB Prov: Radha Hayward, W[employer] PROCESSING OPERATOR 09/19/17 Referrals Luz Evans (PCP) Itz Canas D.O. Patient Instructions ED Diet Clear Liquid, ED Diet Vomiting Diarrhea, My [facility] Additional Instructions You have been evaluated and treated in the Emergency Department today for your nausea/vomiting, diarrhea, and abdominal pain. Laboratory results and imaging studies have ruled out any emergent causes for your symptoms which would warrant admission or surgery. You may have a mild case of nonspecific colitis developing. You have been prescribed Phenergan to be used as needed for nausea/vomiting. Take as prescribed. You have been prescribed Lomotil to be used as needed for diarrhea. Take as prescribed. You may also take Pepto-Bismol as needed for diarrhea. This is available over- the-counter and you will not need a prescription to buy this medication. Take as directed. For pain control, you can use the following ovvw-iwk-[id number] medicines (if >12 yo): - Regular strength (325mg/tab) Tylenol (acetaminophen) 2 tabs every 4-6 hours as needed. Do not exceed 10 tablets in a 24 hour period. Avoid taking more than 3000 mg of Tylenol per day. This includes any other sources of acetaminophen you may take on a regular basis. You may also apply a warm heating pad to your abdomen for comfort. Avoid taking any NSAIDs such as Advil, ibuprofen, Aleve, or aspirin, as this may make your symptoms worse. Drink plenty of fluids to stay well hydrated. Stick with a clear liquid diet until your nausea and vomiting is improved. Then you may advance to a bland/ brat diet to help manage your diarrhea. You should follow-up with Dr. Canas, your [employer] worker this week. You will be called tomorrow to set up an appointment with him. Please follow-up with your Primary Care Provider as well. Return to the emergency department for severe worsening abdominal or back pain, worsening nausea/vomiting, vomiting blood, blood in your stool or urine, fevers > 101.5, severe dizziness or passing out, or any other concerns. Work Instructions Return To Work: 2 days (Radha Hayward CRNP) Problem Qualifiers Primary Impression: Nausea and vomiting Vomiting type: unspecified Vomiting Intractability: non-intractable Qualified Codes: R11.2 - Nausea with vomiting, unspecified Additional Impression: Diarrhea Diarrhea type: unspecified type Qualified Codes: R19.7 - Diarrhea, unspecified
[2017-09-19 17:35] LABS: HEMATOCRIT 38.5 % (37-47); HEMOGLOBIN 12.7 g/dL (12.0-16.0); MEAN CELL VOLUME 88.7 fL (80-100); MEAN CORPUSCULAR HEMOGLOBIN 29.3 pg (25-34); MEAN PLATELET VOLUME 9.9 fL (7.4-10.4); PLATELET COUNT 192 K/uL (130-400); RED CELL DISTRIBUTION WIDTH SD 45.2 fL (36.4-46.3); WHITE BLOOD COUNT 9.42 K/uL (4.8-10.8)
[2017-09-19 17:54] LABS: ALBUMIN 2.9 gm/dl (3.4-5.0); ALKALINE PHOSPHATASE 71 U/L (45-117); ALT/SGPT 44 U/L (12-78); AST/SGOT 29 U/L (15-37); BLOOD UREA NITROGEN 6 mg/dl (7-18); CALCIUM 8.2 mg/dl (8.5-10.1); CARBON DIOXIDE 27 mmol/L (21-32); CREATININE 0.66 mg/dl (0.60-1.20); GLUCOSE 183 mg/dl (70-99); LIPASE 70 U/L (73-393); POTASSIUM 3.2 mmol/L (3.5-5.1); SODIUM 139 mmol/L (136-145); TOTAL PROTEIN 6.6 gm/dl (6.4-8.2)
--- NOTE | 2017-09-19 18:13 | DIAGNOSTIC IMAGING REPORT ---
CHEST ONE VIEW PORTABLE CLINICAL HISTORY: Hypoxia. COMPARISON STUDY: Chest radiograph November 14, 2016. FINDINGS: Lung volumes are at the lower limits of normal. Apparent hazy left basilar opacity is likely due to overlying soft tissues. No pneumothorax or pleural effusion is noted. There is no evidence for without overt pulmonary edema. IMPRESSION: No acute cardiopulmonary findings. Electronically signed by: Yang Soliman M.D. 09/19/2017 6:11 PM Dictated Date/Time: 09/19/2017 6:07 PM
--- NOTE | 2017-09-19 19:24 | DIAGNOSTIC IMAGING REPORT ---
CT OF THE ABDOMEN AND PELVIS WITH CONTRAST CLINICAL HISTORY: Persistent diarrhea and vomiting. Flank pain. COMPARISON STUDY: CT of the abdomen and pelvis November 14, [address] of the abdomen and pelvis September 17, 2017. TECHNIQUE: Following IV administration of 116 mL of Optiray-320, axial images of the abdomen and pelvis were obtained from the lung bases to the proximal femurs. Images were reviewed in the axial, sagittal, and coronal planes. IV contrast was administered without complication. A dose lowering technique was utilized adhering to the principles of ALARA. CT DOSE: 1604.20 mGy.cm FINDINGS: Fatty infiltration of the liver is noted. Spleen is mildly enlarged. Adrenal glands, kidneys and pancreas are normal. There is no biliary or pancreatic ductal dilatation. There is no peripancreatic or pericholecystic infiltration. No pneumatosis, free air or portal venous gas is present. Mild splenomegaly is noted. The appendix is normal. There is oral contrast within the colon from prior contrast enhanced CT. Apparent colonic wall thickening is likely due to underdistention. There is no definite bowel wall thickening. Fat-containing lower ventral hernias unchanged. There is trace fluid within the pelvis. No lymphadenopathy is present. There is no hydronephrosis. IMPRESSION: 1. No bowel obstruction. Normal appendix. 2. Apparent mild transverse colon wall thickening which is likely due to underdistention. A nonspecific colitis could appear similar although is considered less likely. 3. Mild splenomegaly. 4. Fatty liver. 5. Trace fluid within the pelvis. Electronically signed by: Yang Soliman M.D. 09/19/2017 7:23 PM Dictated Date/Time: 09/19/2017 7:02 PM
[2017-09-19] MEDS ORDERED: PROMETHAZINE HCL INJ 25 MG in SODIUM CHLORIDE 0.9% 50ML 50 ML IV STA (19:58)
[2017-09-19] MEDS ORDERED: DIPHENOXYLATE/ATROPINE 2.5/0.025MG TAB PO ONE (20:15)
[2017-09-19] MEDS ORDERED: PHENERGAN 25MG HOMEPACK PO ONE (20:15)
[2017-09-19] MEDS ORDERED: DIPH-416 PO (20:22)
[2017-09-19] MEDS ORDERED: PROM25TA9 PO (20:22)
[2017-09-19 20:53] VITALS: BP 118/65; PULSE 89; O2SAT 100
[2017-09-24] MEDS ORDERED: DIPH-416 PO (08:49)
== END 2017-09-19 21:04 | disposition home or self-care (01) ==
LOC: C.EDB 16:09
DX: R11.2 Nausea with vomiting, unspecified (principal); R19.7 Diarrhea, unspecified; I10 Essential (primary) hypertension; E11.9 Type 2 diabetes mellitus without complications; J45.909 Unspecified asthma, uncomplicated; F32.9 Major depressive disorder, single episode, unspecified; F41.9 Anxiety disorder, unspecified; K58.9 Irritable bowel syndrome, unspecified; Z90.710 Acquired absence of both cervix and uterus; E86.0 Dehydration; E66.01 Morbid (severe) obesity due to excess calories; Z79.82 Long term (current) use of aspirin; Z79.84 Long term (current) use of oral hypoglycemic drugs; Z79.899 Other long term (current) drug therapy; Z88.5 Allergy status to narcotic agent; Z88.4 Allergy status to anesthetic agent

== ENCOUNTER → 2017-09-22 | Outpatient (CLI) | payer OTHER ==
[~2017-09-22] MED LIST changes: +DIPH-416 PO; +OPTIRAY 320 IV PRN; +PROM25TA9 PO
--- NOTE | 2017-09-22 16:16 | DIAGNOSTIC IMAGING REPORT ---
CT OF THE ABDOMEN AND PELVIS WITH CONTRAST CLINICAL HISTORY: Abnormal CT of colon. Colitis. Diarrhea. COMPARISON STUDY: CT of the abdomen and pelvis September 19, 2017. TECHNIQUE: Following IV administration of 114 mL of Optiray-320, axial images of the abdomen and pelvis were obtained from the lung bases to the proximal femurs. Images were reviewed in the axial, sagittal, and coronal planes. IV contrast was administered without complication. A dose lowering technique was utilized adhering to the principles of ALARA. Oral contrast was administered. CT DOSE: 1479.47 mGy.cm FINDINGS: No pneumatosis, free air or portal venous gas is present. There is fatty infiltration of the liver. Mild splenomegaly is noted. There is no biliary or pancreatic ductal dilatation. No peripancreatic or pericholecystic infiltration is present. The caliber and wall thickness of small and large bowel are normal. The appendix is normal. There is minimal bowel wall thickening with submucosal fat deposition. There is no significant hyperemia. No free air or abscess present. There is no lymphadenopathy. Uterus is surgically absent. Fat-containing ventral hernia is noted. No suspicious osseous lesion is noted. IMPRESSION: 1. No significant change in mild colonic wall thickening which may reflect a mild nonspecific colitis or be due to underdistention. Submucosal fat deposition may reflect chronic inflammation/colitis. No free air or abscess. No bowel obstruction. 2. Fatty liver. 3. Mild splenomegaly. Electronically signed by: Yang Soliman M.D. 09/22/2017 4:15 PM Dictated Date/Time: 09/22/2017 4:07 PM
== END | disposition home or self-care (01) ==
LOC: C.CTS 15:35
PROVIDERS: ATTEND Physician Assistant
DX: K52.9 Noninfective gastroenteritis and colitis, unspecified (principal); K76.0 Fatty (change of) liver, not elsewhere classified

== ENCOUNTER → 2017-09-27 | Day surgery (SDC) | payer OTHER ==
[2017-09-24 08:50] VITALS: BMI 45.0
[~2017-09-27] VITALS: Ht 162.6 cm; Wt 119.5 kg
[~2017-09-27] MED LIST changes: +LIDOCAINE HCL 2% 2 ML VIAL (20MG/ML) ONE; -OPTIRAY 320 IV PRN; -PROM25TA9 PO; +PROPOFOL IV EMULSION 10 MG/ML 20 ML VIAL ONE; +SODIUM CHLORIDE 0.9% 500ML 500 ML IV ONE
--- NOTE | 2017-09-27 08:15 | Endo History and Physical ---
History & Physical Date of Service: Sep 27, 2017. Chief Complaint: Abnormal CT scan colon Referring Physician: Luz Evans History of Present Illness 56 yo CF who presents for colonoscopy secondary to abnormal CT scan of the colon. Past Medical History Diabetes, Arthritis, Asthma, Depression Past Surgical History Hx Cardiac Surgery: No Hx Internal Defibrillator: No Hx Pacemaker: No Hx Abdominal Surgery: Yes (CARLOS BSO) Hx Post-Op Nausea and Vomiting: Yes (PONV IN THE PAST BUT NOT LAST 2 COLONOSCOPIES) Hx Cancer Surgery: No Hx Thoracic Surgery: No Hx Orthopedic: No Hx Urinary Tract Surgery: No Family History IBD Social History Smoking Status: Former Smoker Hx Substance Use: No Hx Alcohol Use: Yes (RARELY) Allergies Coded Allergies: Morphine (Verified Allergy, Unknown, NAUSEA, 09/24/17) Current Medications Reported Home Medications Medications Dose Route/Sig Max Daily Dose Days Date Category Lomotil (Diphenoxylate HCl/Atropine) Tab 1 Tab PO PRN 09/24/17 Reported Probiotic (Probiotic Product) 1 Cap Cap 1 Cap PO QPM 09/17/17 Reported Dicyclomine HCl 20 Mg Tab 20 Mg PO BID 09/17/17 Reported Cranberry (Cranberry (Vaccinium Macrocarp) 125 Mg Tab 125 Mg PO QAM 11/09/16 Reported Ventolin Hfa (Albuterol) 200 Puffs/56471 Mcg Aers 2-4 Puffs INH Q6H PRN 11/09/16 Reported Zocor (Simvastatin) 20 Mg Tab 20 Mg PO QPM 01/10/15 Reported Zoloft (Sertraline HCl) 100 Mg Tab 100 Mg PO QPM 01/10/15 Reported Glucophage (Metformin Hcl) 500 Mg Tab 500 Mg PO BID 01/10/15 Reported Cozaar (Losartan Potassium) 50 Mg Tab 50 Mg PO HS 01/10/15 Reported Aspirin Ec (Aspirin) 81 Mg Tab 81 Mg PO QAM 01/10/15 Reported Multivitamin (Multivitamins) Tab 1 Tab PO QAM 11/15/08 Reported Vital Signs Weight (Kilograms): 119.55 Height (Feet): 5 Height (Inches): 4 Physical Exam General Appearance: WD/WN, no apparent distress Respiratory/Chest: Auscultation: breath sounds normal Cardiovascular: Heart Auscultation: RRR Abdomen: Bowel Sounds: normal Inspection & Palpation: soft, non-distended, no tenderness, guarding & rebound Assessment and Plan Assessment: 56 yo CF who presents for colonoscopy secondary to abnormal CT scan of the colon. Plan: Proceed with colonoscopy.
[2017-09-27 08:17] VITALS: Ht 162.6 cm; Wt 119.5 kg
--- NOTE | 2017-09-27 08:59 | Discharge Instructions ---
Endoscopy Patient Instructions Date / Procedure(s) Performed Sep 27, 2017. Colonoscopy Allergy Information Coded Allergies: Morphine (Verified Allergy, Unknown, NAUSEA, 09/24/17) Discharge Date / Findings Sep 27, 2017. Random colon biopsies Internal hemorrhoids Medication Instructions OK to resume all medications today as prescribed Reported Home Medications Medications Dose Route/Sig Max Daily Dose Days Date Category Lomotil (Diphenoxylate HCl/Atropine) Tab 1 Tab PO PRN 09/24/17 Reported Probiotic (Probiotic Product) 1 Cap Cap 1 Cap PO QPM 09/17/17 Reported Dicyclomine HCl 20 Mg Tab 20 Mg PO BID 09/17/17 Reported Cranberry (Cranberry (Vaccinium Macrocarp) 125 Mg Tab 125 Mg PO QAM 11/09/16 Reported Ventolin Hfa (Albuterol) 200 Puffs/20647 Mcg Aers 2-4 Puffs INH Q6H PRN 11/09/16 Reported Zocor (Simvastatin) 20 Mg Tab 20 Mg PO QPM 01/10/15 Reported Zoloft (Sertraline HCl) 100 Mg Tab 100 Mg PO QPM 01/10/15 Reported Glucophage (Metformin Hcl) 500 Mg Tab 500 Mg PO BID 01/10/15 Reported Cozaar (Losartan Potassium) 50 Mg Tab 50 Mg PO HS 01/10/15 Reported Aspirin Ec (Aspirin) 81 Mg Tab 81 Mg PO QAM 01/10/15 Reported Multivitamin (Multivitamins) Tab 1 Tab PO QAM 11/15/08 Reported Provider Instructions Activity Restrictions - No exercising or heavy lifting for 24 hours. - Do not drink alcohol the day of the procedure. - Do not drive a car or operate machinery until the day after the procedure. - Do not make any important decisions or sign important papers in 24 hours after the procedure. Following Day: - Return to full activity which may include returning to work/school. Diet Start your diet with liquids and light foods (jello, soup, juice, toast). Then eat your usual diet if not nauseated. Treatment For Common After Affects For mild abdominal pain, bloating, or excessive gas: - Rest - Eat lightly - Lie on right side Follow-Up Information Follow-up with Luz brito NP p[facility] as scheduled Anesthesia Information What You Should Know You have had a procedure that required some medicine to reduce anxiety and discomfort. This treatment is called moderate sedation. After receiving the treatment, you may be sleepy, but you will be able to breathe on your own. The effects of the treatment may last for several hours. Follow these instructions along with Activity/Diet recommendations noted above: * Do NOT do anything where dizziness or clumsiness would be dangerous. * Rest quietly at home today, then you can be up and about tomorrow. * Have a responsible person stay with you the rest of today. * You may have had an I.V. today. If so, you may take the dressing off later today. Recommendations Call your doctor if: * Trouble breathing * Continuous vomiting for more than 24 hours * Temperature above 101 degrees * Severe abdominal pain or bloating * Pain not relieved by pain medicine ordered * There is increased drainage or redness from any incision * A large amount of rectal bleeding greater than 2-3 tablespoons. (If you had a polyp/s removed or have hemorrhoids, a small amount of blood - from the rectum is to be expected.) * You have any unanswered questions or concerns. IN THE EVENT OF A SERIOUS EMERGENCY, GO TO THE NEAREST EMERGENCY ROOM Your discharge instructions were prepared by provider Itz Canas. Patient Instructions Signature Page Karly Carbajal Patient (or Guardian) Signature/Date: I have read and understand the instructions given to me by my caregivers. Caregiver/RN/Doctor Signature/Date: The above-named patient and/or guardian has received patient instructions on this date. + Original Patient Signature Page (only) stays with chart. Please make copy for patient.
--- NOTE | 2017-09-27 09:09 | GI REPORT ---
Patient Name: Karly Carbajal Procedure Date: 09/27/2017 8:13 AM Date of : 1960 Admit Type: Outpatient Age: 56 Gender: Female Attending MD: Itz Canas DO Procedure: Colonoscopy Providers: Itz Canas DO Referring MD: Luz Evans Indications: Abnormal CT of the GI tract Medicines: Monitored Anesthesia Care Complications: No immediate complications. Estimated Blood Loss: Estimated blood loss: none. Procedure: Pre-Anesthesia Assessment: - Prior to the procedure, a History and Physical was performed, and patient medications and allergies were reviewed. The patient's tolerance of previous anesthesia was also reviewed. The risks and benefits of the procedure and the sedation options and risks were discussed with the patient. All questions were answered, and informed consent was obtained. Prior Anticoagulants: The patient has taken aspirin, last dose was 1 day prior to procedure. ASA Grade Assessment: III - A patient with severe systemic disease. After reviewing the risks and benefits, the patient was deemed in satisfactory condition to undergo the procedure. After I obtained informed consent, the scope was passed under direct vision. Throughout the procedure, the patient's blood pressure, pulse, and oxygen saturations were monitored continuously. The scope was introduced through the anus and advanced to the terminal ileum. The colonoscopy was performed without difficulty. The patient tolerated the procedure well. The quality of the bowel preparation was good. The terminal ileum and the appendiceal orifice were photographed. Findings: The perianal and digital rectal examinations were normal. Non-bleeding internal hemorrhoids were found during retroflexion. The hemorrhoids were small. Several random biopsies were obtained with cold forceps for histology in the entire colon. Fluid aspiration for stool studies was performed in the entire colon. Impression: - Non-bleeding internal hemorrhoids. - Several random biopsies were obtained in the entire colon. - Fluid aspiration was performed. Recommendation: - Resume previous diet. - Continue present medications. - Await pathology results. - Return to primary care physician as previously scheduled. Itz Canas DO 09/27/2017 9:08:41 AM This report has been signed electronically. Note Initiated On: 09/27/2017 8:13 AM Number of Addenda: 0 I attest to the content of the Intraoperative Record and orders documented therein, exceptions below {[id number]}
--- NOTE | 2017-09-27 09:23 | Anesthesiology Progress Note ---
Anesthesia Post Op Note Date & Time Sep 27, 2017 at 09:23 Vital Signs Pain Intensity: 0 Vital Signs Past 12 Hours Date Time Temp Pulse Resp B/P (MAP) Pulse Ox O2 Delivery O2 Flow Rate FiO2 09/27/17 09:17 89 18 145/86 (105) 96 Room Air 09/27/17 09:03 90 16 123/60 (81) 95 Room Air 09/27/17 08:23 36.9 112 20 148/99 (115) 95 Room Air Notes Mental Status: alert / awake / arousable, participated in evaluation Pt Amnestic to Procedure: Yes Nausea / Vomiting: adequately controlled Pain: adequately controlled Airway Patency, RR, SpO2: stable & adequate BP & HR: stable & adequate Hydration State: stable & adequate Anesthetic Complications: no major complications apparent
[2017-09-27 09:34] VITALS: BP 141/78; PULSE 89; O2SAT 95
== END | disposition home or self-care (01) ==
LOC: C.GI 07:34
PROVIDERS: ATTEND Internal Medicine
DX: R93.3 Abnormal findings on diagnostic imaging of other parts of digestive tract (principal); J45.909 Unspecified asthma, uncomplicated; I10 Essential (primary) hypertension; E11.9 Type 2 diabetes mellitus without complications; Z88.5 Allergy status to narcotic agent; K64.8 Other hemorrhoids; F32.9 Major depressive disorder, single episode, unspecified; Z87.891 Personal history of nicotine dependence; Z79.899 Other long term (current) drug therapy; Z79.84 Long term (current) use of oral hypoglycemic drugs; Z79.82 Long term (current) use of aspirin